=== PATIENT | male | born 1955 ===

== ENCOUNTER 2017-03-28 10:22 | Inpatient (IN) | payer OTHER ==
[2017-03-28 12:02] LABS: BASO % 0.6 % (0.0-2.0); EOS # 0.1 K/uL (0.0-0.7); EOS % 1.7 % (0.0-4.0); HEMOGLOBIN 11.4 g/dL (12.0-18.0); LYMPH # 0.6 K/uL (1.0-4.3); LYMPH % 11.1 % (20.0-40.0); MEAN CELL VOLUME 95.6 fl (80.0-94.0); MEAN CORPUSCULAR HEMOGLOBIN 32.7 pg (27.0-31.0); MEAN CORPUSCULAR HGB CONC 34.2 g/dL (33.0-37.0); MEAN PLATELET VOLUME 6.9 fl (7.2-11.7); MONO # 0.8 K/uL (0.0-0.8); MONO % 13.5 % (0.0-10.0); NEUT # 4.1 K/uL (1.8-7.0); NEUT % 73.1 % (50.0-75.0); RBC 3.5 Mil/uL (4.40-5.90); RED CELL DISTRIBUTION WIDTH 14.2 % (11.5-14.5); WHITE BLOOD COUNT 5.6 K/uL (4.8-10.8)
[2017-03-28 12:09] LABS: URINE BACTERIA RARE (<OCC); URINE BILIRUBIN NEGATIVE (NEGATIVE); URINE BLOOD NEGATIVE (NEGATIVE); URINE CLARITY CLEAR (Clear); URINE COLOR STRAW (YELLOW); URINE GLUCOSE (UA) 50 mg/dL (Normal); URINE LEUKOCYTE ESTERASE NEG Leu/uL (Negative); URINE NITRATE NEGATIVE (NEGATIVE); URINE PROTEIN NEGATIVE (NEGATIVE); URINE UROBILINOGEN 0.2-1.0 mg/dL (0.2-1.0)
--- NOTE | 2017-03-28 12:43 | ED PDOC ---
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 states for the past 3 months he's been having worsening hiccups especially over the last 3-4 days. Reports that he was initially seen in [place] [facility] and was subsequently admitted for 5 nights. Pt. states he was mainly treated for his pneumonia at that time but he was given a GI consult. After he was discharged he was evaluated by Dr. Sukhwinder Bryant who scheduled an upper endoscopy to be done on 04/22/2017. States that he was not given any medications to help relieve symptoms. Pt. states since the hiccups have worsened he's also developed b/l chest pain and epigastric pain present only when he hiccups. Denies fever, N/V/D, melena, hematochezia, BRBPR, SOB, palpitations, hematemesis. Also reports having 20lb weight loss. Past Medical History Reviewed: Historical Data, Nursing Documentation, Vital Signs Vital Signs: Last Vital Signs Temp 97.6 F 03/28/17 17:00 Pulse 109 H 03/28/17 18:02 Resp 20 03/28/17 17:38 BP 150/90 03/28/17 17:38 Pulse Ox 100 03/28/17 18:02 - Medical History PMH: Diabetes - Family History Family History: States: No Known Family Hx - Social History Current smoker - smoking cessation education provided: No Ex-Smoker (has not smoked in the last 12 months): Yes (stopped smoking 3 years ago; smoker x 10 years 3-4 cigarettes/day) - Home Medications Home Medications: Ambulatory Orders Medication Instructions Recorded Cyclobenzaprine [Flexeril] 5 mg PO BID PRN 03/28/17 Ferrous Sulfate [Ferosul] 325 mg PO BID 03/28/17 Insulin Detemir [Levemir] 20 unit SC HS 03/28/17 MetFORMIN [glucoPHAGE] 1,000 mg PO BID 03/28/17 Multivitamin [Multi-Vitamin Daily] 1 tab PO DAILY 03/28/17 Vitamin B Complex [Super B-50 1 cap PO DAILY 03/28/17 Complex] - Allergies Allergies/Adverse Reactions: Allergies Allergy/AdvReac Type Severity Reaction Status Date / Time No Known Allergies Allergy Verified 03/28/17 10:48 Review of Systems ROS Statement: Except As Marked, All Systems Reviewed And Found Negative Constitutional: Positive for: Weight loss (20 lbs over the last 3 months) Cardiovascular: Positive for: Chest Pain Gastrointestinal: Positive for: Vomiting, Abdominal Pain. Negative for: Hematemesis Physical Exam - Reviewed Nursing Documentation Reviewed: Yes Vital Signs Reviewed: Yes - Physical Exam Appears: Positive for: Well, Non-toxic, Uncomfortable (actively hiccuping) Head Exam: Positive for: ATRAUMATIC, NORMAL INSPECTION, NORMOCEPHALIC Skin: Positive for: Normal Color, Warm, DRY Eye Exam: Positive for: EOMI, Normal appearance, PERRL ENT: Positive for: Normal ENT Inspection. Negative for: Pharyngeal Erythema, Tonsillar Exudate, Tonsillar Swelling Neck: Positive for: Normal, Painless ROM Cardiovascular/Chest: Positive for: Regular Rate, Rhythm Respiratory: Positive for: CNT, Normal Breath Sounds Gastrointestinal/Abdominal: Positive for: Normal Exam, Bowel Sounds, Soft. Negative for: Tenderness Back: Positive for: Normal Inspection. Negative for: L CVA Tenderness, R CVA Tenderness Extremity: Positive for: Normal ROM Neurologic/Psych: Positive for: Alert, Oriented - Laboratory Results Result Diagrams: 03/28/17 11:50 03/28/17 12:20 - ECG ECG: Positive for: Interpreted By Me ECG Rhythm: Positive for: Sinus Tachycardia. Negative for: ST/T Changes Rate: 109 O2 Sat by Pulse Oximetry: 100 - Radiology X-Ray: Interpreted by Me (CXR) X-Ray Interpretation: No Acute Disease - Progress ED Course And Treament: Labs ordered. CXR ordered. Case d/w Dr. Bryant who states pt. can be given Thorazine and a PPI and he can f/u with his office if symptoms worsen. Thorazine 25mg IM, protonix 40mg IV given. On re-evaluation, pt. reports complete relief of hiccups. IV NS hydration at 100mls/hr, kayexalate PO given. Pt. placed on monitor and is tachycardic at 120 bpm. D-dimer elevated. CTA ordered. CTA chest w/ IV contrast: Multifocal infiltrates primarily affecting the right lung including several of which are cavitary. This includes complex partially cavitary mass in the anterior segment of the right upper lobe, thick walled cavitary mass in the superior segment of the right lower lobe. Associated inflammatory/ infiltrative changes identified in the right lower lobe. Additional benign cavitary masses in the right middle lobe. Focal pleural thickening and subpulmonic effusion on the right identified. The overall appearance suggests chronic process. Differential diagnostic considered variations include necrotic masses, septic emboli, fungal infectious/ inflammatory etiologies in an immunocompromised individual. There is a component of volume loss in underlying hyperinflation, manifestations of COPD. Blood culture x 2, Levaquin 500mg IV ordered. Case d/w Dr. Almonte and arrangements made for admission. Disposition - Clinical Impression Clinical Impression: Hyponatremia, Hyperkalemia, Mass of lung - Patient ED Disposition Is Patient to be Admitted: Yes - Disposition Disposition Time: 17:00 Condition: STABLE
--- NOTE | 2017-03-28 12:44 | RAD ---
HISTORY: Abdominal pain. COMPARISON: No prior. TECHNIQUE: Chest PA and lateral FINDINGS: LUNGS: Multifocal infiltrates primarily affecting right lower lobe. PLEURA: Small right pleural effusion. CARDIOVASCULAR: No radiographic findings to suggest acute or significant cardiovascular disease. OSSEOUS STRUCTURES: No significant abnormalities. VISUALIZED UPPER ABDOMEN: Normal. OTHER FINDINGS: None. IMPRESSION: Multifocal infiltrates primarily affecting the right lower lobe. Small right pleural effusion.
[2017-03-28 12:46] LABS: ALB/GLOB RATIO 0.5 (1.0-2.1); ALBUMIN 3.1 g/dL (3.5-5.0); ALT/SGPT 68 U/L (21-72); AST/SGOT 83 U/L (17-59); BLOOD UREA NITROGEN 12 mg/dl (9-20); CALCIUM 8.5 mg/dL (8.4-10.2); GFR AFRICAN-AMERICAN > 60; GFR NON-AFRICAN AMERICAN > 60; LIPASE 31 U/L (23-300)
[2017-03-28] MEDS ORDERED: Sodium Chloride 0.9% 1,000 ML IV STA (13:03)
[2017-03-28] MEDS ORDERED: Sod Polystyrene Sulf 15 gm/60 ml Oral Susp PO STA (13:03)
[2017-03-28] MEDS ORDERED: Sod Polystyrene Sulf 15 gm/60 ml Oral Susp ONE (13:12)
[2017-03-28] MEDS ORDERED: Sodium Chloride 0.9% 50 ML IV ONE (15:50)
[2017-03-28] MEDS ORDERED: Iodixanol 320 MG/ML 100 ML BOTTLE IV ONE (15:50)
--- NOTE | 2017-03-28 17:13 | CT ---
PROCEDURE: CT Chest with contrast (Pulmonary Angiogram) HISTORY: chest pain, elevated ddimer, chest pain COMPARISON: None available. TECHNIQUE: Axial computed tomography images were obtained of the chest in the pulmonary arterial phase of enhancement. Coronal and sagittal reformatted images were created and reviewed. Maximum intensity projection (MIP) reconstructed images in the following planes: Axial only Intravenous contrast dose: 80 cc Visipaque 320 Mean Hounsfield unit values in the main pulmonary artery: 333.8 Radiation dose: Total exam DLP = 197.78 mGy-cm. This CT exam was performed using one or more of the following dose reduction techniques: Automated exposure control, adjustment of the mA and/or kV according to patient size, and/or use of iterative reconstruction technique. FINDINGS: PULMONARY ARTERIES: Unremarkable. No pulmonary embolism. AORTA: No acute findings. No thoracic aortic aneurysm. LUNGS: Multifocal infiltrates primarily affecting the right lung including several of which are cavitary. This includes complex partially cavitary mass in the anterior segment of the right upper lobe, thick walled cavitary mass in the superior segment of the right lower lobe. Associated inflammatory/ infiltrative changes identified in the right lower lobe. Additional benign cavitary masses in the right middle lobe. Focal pleural thickening and subpulmonic effusion on the right identified. The overall appearance suggests chronic process. Differential diagnostic considered variations include necrotic masses, septic emboli, fungal infectious/ inflammatory etiologies in an immunocompromised individual. There is a component of volume loss in underlying hyperinflation, manifestations of COPD. PLEURAL SPACES: Unremarkable. No effusion or pneuomothorax. HEART: Unremarkable. No cardiomegaly. No significant pericardial effusion. LYMPH NODES: No lymphadenopathy. BONES, CHEST WALL: Unremarkable. No fracture or destructive lesion OTHER FINDINGS: Unremarkable. IMPRESSION: Unremarkable CT pulmonary angiogram. No pulmonary embolus. Multifocal pulmonary parenchymal findings primarily affecting right lung including all 3 lobes. Differential considerations provided in the commentary. Unilateral, right and partially loculated pleural effusion.
[2017-03-28] MEDS ORDERED: levoFLOXacin 500 mg in D5W 500 MG/100 ML BAG IVPB ONE (18:32)
--- NOTE | 2017-03-28 19:38 | CP.PCM.HP ---
History of Present Illness - History of Present Illness History of Present Illness: 61 yo male with history of DM2 came in complaining of recurrent and persistent hiccups for 3 months partially relieved with induced vomiting. He claimed that he loss about 25 lbs since then. He admitted that the hiccups just suddenly appeared out of nowhere without any cause. He was seen at [facility] and was admitted for pneumonia. After 5 days, patient was discharged but according to him, his hiccups never went away. He was told to follow up with his PCP at the [facility] where CT scan and other blood tests were done. He was also referred to Dr Sukhwinder Bryant, who scheduled him for endoscopy on . Patient denied fever, chills, SOB or coughing. He admitted having chest pain with the hiccups. Present on Admission - Present on Admission Any Indicators Present on Admission: No History of DVT/PE: No History of Uncontrolled Diabetes: No Urinary Catheter: No Decubitus Ulcer Present: No Review of Systems - Review of Systems All systems: reviewed and no additional remarkable complaints except (aside from those mentioned above, 12 point system review were negative by me) Past Patient History - Tetanus Immunizations Tetanus Immunization: Unknown - Past Medical History & Family History Past Medical History?: No Past Family History: Reviewed and not pertinent - Past Social History Smoking Status: Never Smoked Alcohol: None Drugs: Denies Home Situation {Lives}: With Family - CARDIAC Hx Cardiac Disorders: No - PULMONARY Hx Respiratory Disorders: No - NEUROLOGICAL Hx Neurological Disorder: No - HEENT Hx HEENT Problems: No - RENAL Hx Chronic Kidney Disease: No - ENDOCRINE/METABOLIC Hx Diabetes Mellitus Type 2: Yes - HEMATOLOGICAL/ONCOLOGICAL Hx Blood Disorders: No - INTEGUMENTARY Hx Dermatological Problems: No - MUSCULOSKELETAL/RHEUMATOLOGICAL Hx Musculoskeletal Disorders: No - GASTROINTESTINAL Hx Gastrointestinal Disorders: No - GENITOURINARY/GYNECOLOGICAL Hx Genitourinary Disorders: No - PSYCHIATRIC Hx Psychophysiologic Disorder: No Hx Substance Use: No - SURGICAL HISTORY Hx Surgeries: Yes Other/Comment: ABDOMINAL SURGERY FROM ULCER. - ANESTHESIA Hx Anesthesia: Yes Hx Anesthesia Reactions: No Meds Allergies/Adverse Reactions: Allergies Allergy/AdvReac Type Severity Reaction Status Date / Time No Known Allergies Allergy Verified 03/28/17 10:48 Physical Exam - Constitutional Appears: No Acute Distress, Cachectic - Head Exam Head Exam: ATRAUMATIC - Eye Exam Eye Exam: absent: Scleral icterus - ENT Exam ENT Exam: Mucous Membranes Moist - Neck Exam Neck exam: Negative for: Meningismus - Respiratory Exam Respiratory Exam: absent: Rhonchi, Wheezes, Respiratory Distress - Cardiovascular Exam Cardiovascular Exam: REGULAR RHYTHM, +S1, +S2 - GI/Abdominal Exam GI & Abdominal Exam: Soft. absent: Tenderness - Rectal Exam Rectal Exam: Deferred - Extremities Exam Extremities exam: Negative for: calf tenderness, pedal edema - Back Exam Back exam: NORMAL INSPECTION - Neurological Exam Neurological exam: Alert, Oriented x3 - Psychiatric Exam Psychiatric exam: Normal Affect - Skin Skin Exam: Dry, Intact Results - Vital Signs Recent Vital Signs: Last Vital Signs Temp 97.6 F 03/28/17 17:00 Pulse 109 H 03/28/17 19:25 Resp 20 03/28/17 17:38 BP 150/90 03/28/17 17:38 Pulse Ox 100 03/28/17 19:25 - Labs Result Diagrams: 03/28/17 11:50 03/28/17 12:20 Assessment & Plan (1) Mass of lung Status: Acute Comment: admit to med/surg. Multifocal infiltrate on RUL, RLL and RML with cavitations. Blood cultures x 2. Sputum culture. Zosyn 375gm IV q 6hrs. Levaquin 500mg IV daily. Pulmonary consult with Dr Brand (2) Intractable hiccups Status: Acute Comment: GI consult with Dr Bryant. Protonix 40mg PO daily. Chlorpromazine 25 PO TID prn (3) DM2 (diabetes mellitus, type 2) Status: Acute Comment: diabetic diet. accuchek ACHS with low Lispro coverage. Metformin 1000mg PO BID. Levemir 20 units SC HS. HgA1C, BMP in am (4) Hyponatremia Status: Acute Comment: IV hydration with NSS 150cc/hr. repeat BMP in am (5) Hyperkalemia Status: Acute Comment: received Kayexalate 30gm PO in ER. repeat BMP in am (6) DVT prophylaxis Status: Acute Comment: Lovenox 40mg SC daily
[2017-03-28] MEDS ORDERED: Sodium Chloride 3% for Inhalation 4 ML VIAL.NEB IH PRN (20:13)
[2017-03-28] MEDS ORDERED: Tuberculin 5 Units/0.1 ml Inj ID ONE (20:27)
[2017-03-28] MEDS ORDERED: Piperacillin/Tazobact 3.375 GM in Sodium Chloride 0.9% 100 ML IVPB SCH (22:00)
[2017-03-28] MEDS: Sodium Chloride 0.9% 1,000 ML IV SCH (23:05)
[2017-03-28] MEDS: Insulin Detemir 100 Units/ml Inj SC SCH (23:47)
[2017-03-29] MEDS: Piperacillin/Tazobact 3.375 GM in Sodium Chloride 0.9% 100 ML IVPB SCH ×5 (00:08→23:18)
[2017-03-29] MEDS: Sodium Chloride 0.9% 1,000 ML IV SCH ×2 (02:55→23:45)
[2017-03-29] MEDS: Insulin Regular 100 units/ml SC SCH ×4 (06:35→21:44)
[2017-03-29 06:41] LABS: BASO % 0.2 % (0.0-2.0); EOS # 0.1 K/uL (0.0-0.7); EOS % 1.8 % (0.0-4.0); HEMOGLOBIN 11.2 g/dL (12.0-18.0); LYMPH # 0.5 K/uL (1.0-4.3); LYMPH % 10.3 % (20.0-40.0); MEAN CELL VOLUME 94.6 fl (80.0-94.0); MEAN CORPUSCULAR HEMOGLOBIN 32.9 pg (27.0-31.0); MEAN CORPUSCULAR HGB CONC 34.8 g/dL (33.0-37.0); MONO # 0.5 K/uL (0.0-0.8); MONO % 9.8 % (0.0-10.0); NEUT # 3.7 K/uL (1.8-7.0); NEUT % 77.9 % (50.0-75.0); NRBC % 0.2 % (0.0-0.0); RBC 3.39 Mil/uL (4.40-5.90); RED CELL DISTRIBUTION WIDTH 14.6 % (11.5-14.5); WHITE BLOOD COUNT 4.8 K/uL (4.8-10.8)
[2017-03-29 06:59] LABS: BLOOD UREA NITROGEN 10 mg/dl (9-20); CALCIUM 7.8 mg/dL (8.4-10.2); GFR AFRICAN-AMERICAN > 60; GFR NON-AFRICAN AMERICAN > 60
[2017-03-29] MEDS: Enoxaparin 40 mg Syringe SC SCH (09:18)
[2017-03-29] MEDS: Pantoprazole 40 mg EC Tab PO SCH (09:19)
[2017-03-29] MEDS: levoFLOXacin 500 mg in D5W 500 MG/100 ML BAG IVPB SCH (10:00)
[2017-03-29 11:44] VITALS: BMI 17.5
--- NOTE | 2017-03-29 11:47 | CP.PCM.PN ---
<Jonah Alcazar - Last Filed: 03/29/17 13:04> Subjective - Date & Time of Evaluation Date of Evaluation: 03/29/17 Time of Evaluation: 11:44 - Subjective Subjective: - Patient seen resting in bed comfortably. Denies any overnight events. His hiccups have resolved. Patient has ate breakfast and is tolerating PO intake. Denies any chills, fever, cough, nausea or vomiting. Objective - Vital Signs/Intake and Output Vital Signs (last 24 hours): Temp Pulse Resp BP Pulse Ox 98.9 F 105 H 20 151/87 H 99 03/29/17 10:00 03/29/17 10:00 03/29/17 10:00 03/29/17 10:00 03/29/17 07:32 - Medications Medications: Current Medications Enoxaparin Sodium (Lovenox) 40 mg SC DAILY [facility] PRN Reason: Protocol Last Admin: 03/29/17 09:18 Dose: 40 mg Ferrous Sulfate (Feosol) 325 mg PO BID [facility] Last Admin: 03/29/17 09:19 Dose: 325 mg Sodium Chloride (Sodium Chloride 0.9%) 1,000 mls @ 150 mls/hr IV .Q6H40M [facility] Last Admin: 03/29/17 02:55 Dose: Not Given Levofloxacin/Dextrose (Levaquin 500mg) 500 mg in 100 mls @ 100 mls/hr IVPB DAILY [facility] Last Admin: 03/29/17 10:00 Dose: 100 mls/hr Piperacillin Sod/Tazobactam (Sod 3.375 gm/ Sodium Chloride) 100 mls @ 100 mls/ hr IVPB 0000,0600,1200,1800 [facility] Last Admin: 03/29/17 05:26 Dose: 100 mls/hr Insulin Detemir (Levemir) 20 units SC HS [facility] Last Admin: 03/28/17 23:47 Dose: Not Given Insulin Human Regular (Humulin R) 0 units SC ACHS [facility] PRN Reason: Protocol Last Admin: 03/29/17 06:35 Dose: Not Given Metformin HCl (Glucophage) 1,000 mg PO BID [facility] Last Admin: 03/29/17 09:18 Dose: 1,000 mg Pantoprazole Sodium (Protonix Ec Tab) 40 mg PO DAILY [facility] Last Admin: 03/29/17 09:19 Dose: 40 mg - Labs Labs: 03/29/17 05:20 03/29/17 05:20 - Constitutional Appears: No Acute Distress - Head Exam Head Exam: NORMAL INSPECTION, NORMOCEPHALIC - Eye Exam Eye Exam: EOMI, Normal appearance Pupil Exam: NORMAL ACCOMODATION - Respiratory Exam Respiratory Exam: Clear to Ausculation Bilateral. absent: Rhonchi, Wheezes - Cardiovascular Exam Cardiovascular Exam: REGULAR RHYTHM, Murmur Additional comments: 3+ - GI/Abdominal Exam GI & Abdominal Exam: Soft, Normal Bowel Sounds. absent: Tenderness - Extremities Exam Extremities Exam: Normal Inspection. absent: Calf Tenderness - Neurological Exam Neurological Exam: Alert, Awake, CN II-XII Intact, Oriented x3 - Psychiatric Exam Psychiatric exam: Normal Affect, Normal Mood - Skin Skin Exam: Normal Color, Warm Assessment and Plan - Assessment and Plan (Free Text) Assessment: (1) Mass of lung Status: Acute Comment: - In isolation untill sputum culture results come back - Multifocal infiltrate on RUL, RLL and RML with cavitations. Zosyn 375gm IV q 6hrs. Levaquin 500mg IV daily. - F/ U w/ blood culture x2 - F/U w/ sputum culture - F/U w/ AFP culture sputum - Pulmonary consult with Dr Brand (2) Intractable hiccups ( Resolved) Status: Acute Comment: GI consult with Dr Bryant. Protonix 40mg PO daily. (3) DM2 (diabetes mellitus, type 2) Status: Acute Comment: diabetic diet. accuchek ACHS with low Lispro coverage. Metformin 1000mg PO BID. Levemir 20 units SC HS. - F/U w/ HBA1C (4) Hyponatremia ( improving) Status: Acute Comment: IV hydration with NSS 150cc/hr. - improved from 126 to 130 - F/U w/ BMP tomorrow (5) Hyperkalemia ( Resolved) Status: Acute Comment: received Kayhexalate 30gm PO in ER. On repeat BMP: K+ was 4.6 (6) DVT prophylaxis Status: Acute Comment: Lovenox 40mg SC daily <Oscar Almonte D - Last Filed: 03/29/17 13:59> Objective - Vital Signs/Intake and Output Vital Signs (last 24 hours): Temp Pulse Resp BP Pulse Ox 98.9 F 105 H 20 151/87 H 99 06/30/17 10:00 03/29/17 10:00 03/29/17 10:00 03/29/17 10:00 03/29/17 07:32 - Medications Medications: Current Medications Enoxaparin Sodium (Lovenox) 40 mg SC DAILY [facility] PRN Reason: Protocol Last Admin: 03/29/17 09:18 Dose: 40 mg Ferrous Sulfate (Feosol) 325 mg PO BID [facility] Last Admin: 03/29/17 09:19 Dose: 325 mg Sodium Chloride (Sodium Chloride 0.9%) 1,000 mls @ 150 mls/hr IV .Q6H40M [facility] Last Admin: 03/29/17 02:55 Dose: Not Given Levofloxacin/Dextrose (Levaquin 500mg) 500 mg in 100 mls @ 100 mls/hr IVPB DAILY [facility] Last Admin: 03/29/17 10:00 Dose: 100 mls/hr Piperacillin Sod/Tazobactam (Sod 3.375 gm/ Sodium Chloride) 100 mls @ 100 mls/ hr IVPB 0000,0600,1200,1800 [facility] Last Admin: 03/29/17 05:26 Dose: 100 mls/hr Insulin Detemir (Levemir) 20 units SC HS [facility] Last Admin: 03/28/17 23:47 Dose: Not Given Insulin Human Regular (Humulin R) 0 units SC ACHS [facility] PRN Reason: Protocol Last Admin: 03/29/17 12:55 Dose: 2 units Metformin HCl (Glucophage) 1,000 mg PO BID [facility] Last Admin: 03/29/17 09:18 Dose: 1,000 mg Pantoprazole Sodium (Protonix Ec Tab) 40 mg PO DAILY [facility] Last Admin: 03/29/17 09:19 Dose: 40 mg - Labs Labs: 03/29/17 05:20 03/29/17 05:20 Assessment and Plan (1) Mass of lung Status: Acute (2) Intractable hiccups Status: Acute (3) DM2 (diabetes mellitus, type 2) Status: Acute (4) Hyponatremia Status: Acute (5) Hyperkalemia Status: Acute (6) DVT prophylaxis Status: Acute - Assessment and Plan (Free Text) Assessment: Patient seen with resident and agreed with assessment and plan. Spoke with Dr Brand and recommended bronchoscopy. He will also follow up previous studies done at [facility].
--- NOTE | 2017-03-29 13:53 | CP.PCM.CON ---
History of Present Illness - History of Present Illness History of Present Illness: 61 yo male with thick walled cavitary lesions in chest- hx of weight loss w/o fever R/O malignancy TB less likely will send sputum afb 61 yo male with history of DM2 came in complaining of recurrent and persistent hiccups for 3 months partially relieved with induced vomiting. He claimed that he loss about 25 lbs since then. He admitted that the hiccups just suddenly appeared out of nowhere without any cause. He was seen at [facility] and was admitted for pneumonia. After 5 days, patient was discharged but according to him, his hiccups never went away. He was told to follow up with his PCP at the [facility] where CT scan and other blood tests were done. He was also referred to Dr Sukhwinder Bryant, who scheduled him for endoscopy on . Patient denied fever, chills, SOB or coughing. He admitted having chest pain with the hiccups. Review of Systems - Constitutional Constitutional: As Per HPI, Anorexia - EENT Eyes: absent: As Per HPI, Blind Spots, Blurred Vision, Change in Vision, Decreased Night Vision, Diplopia, Discharge, Dry Eye, Exophthalmos, Floaters, Irritation, Itchy Eyes, Loss of Peripheral Vision, Pain, Photophobia, Requires Corrective Lenses, Sees Flashes, Spots in Vision, Tunnel Vision, Other Visual Disturbances, Loss of Vision, Other Ears: absent: As Per HPI, Decreased Hearing, Ear Discharge, Ear Pain, Tinnitus, Abnormal Hearing, Disequilibrium, Dizziness, Other Nose/Mouth/Throat: absent: As Per HPI, Epistaxis, Nasal Congestion, Nasal Discharge, Nasal Obstruction, Nasal Trauma, Nose Pain, Post Nasal Drip, Sinus Pain, Sinus Pressure, Bleeding Gums, Change in Voice, Dental Pain, Dry Mouth, Dysphagia, Halitosis, Hoarsness, Lip Swelling, Mouth Lesions, Mouth Pain, Odynophagia, Sore Throat, Throat Swelling, Tongue Swelling, Facial Pain, Neck Pain, Neck Mass, Other - Cardiovascular Cardiovascular: absent: As Per HPI, Acrocyanosis, Chest Pain, Chest Pain at Rest , Chest Pain with Activity, Claudication, Diaphoresis, Dyspnea, Dyspnea on Exertion, Edema, Irregular Heart Rhythm, Pain Radiating to Arm/Neck/Jaw, Leg Edema, Leg Ulcers, Lightheadedness, Orthopnea, Palpitations, Paroxysmal Nocturnal Dyspnea, Pedal Edema, Radiating Pain, Rapid Heart Rate, Slow Heart Rate, Syncope, Other - Respiratory Respiratory: As Per HPI - Gastrointestinal Gastrointestinal: As Per HPI - Genitourinary Genitourinary: absent: As Per HPI, Change in Urinary Stream, Difficulty Urinating, Dysuria, Flank Pain, Hematuria, Pyuria, Nocturia, Urinary Incontinence, Urinary Frequency, Urinary Hesitance, Urinary Urgency, Voiding Freq/Small Amts, Freq UTI, Hx Renal/Bladder Calculi, Hx /Renal Surgery, Bladder Distension, Other - Musculoskeletal Musculoskeletal: absent: As Per HPI, Abnormal Gait, Arthralgias, Atrophy, Back Pain, Deformity, Joint Swelling, Limited Range of Motion, Loss of Height, Muscle Cramps, Muscle Weakness, Myalgias, Neck Pain, Numbness, Radiating Pain into Limb, Stiffness, Tingling, Other - Integumentary Integumentary: absent: As Per HPI, Acne, Alopecia, Bleeding Lesions, Change in Hair, Change in Nails, Change in Pigmentation, Changing Lesions, Dry Skin, Erythema, Furuncle, Hirsutism, Lesions, New Lesions, Non-Healing Lesions, Photosensitivity, Pruritus, Rash, Skin Pain, Skin Ulcer, Sores, Striae, Swelling , Unusual Bruising, Wounds, Jaundice, Other - Neurological Neurological: absent: As Per HPI, Abnormal Gait, Abnormal Hearing, Abnormal Movements, Abnormal Speech, Behavioral Changes, Burning Sensations, Confusion, Convulsions, Disequilibrium, Dizziness, Numbness, Focal Weakness, Frequent Falls , Headaches, Lack of Coordination, Loss of Vision, Memory Loss, Paresthesias, Radicular Pain, Restless Legs, Sensory Deficit, Syncope, Tingling, Tremor, Vertigo, Weakness, Other Visual Disturbances, Other - Psychiatric Psychiatric: absent: As Per HPI, Abnormal Sleep Pattern, Anhedonia, Anxiety, Auditory Hallucinations, Behavioral Changes, Change in Appetite, Change in Libido, Confusion, Depression, Difficulty Concentrating, Hallucinations, Homicidal Ideation, Hopelessness, Irritability, Memory Loss, Mood Swings, Panic Attacks, Paranoia, Suicidal Ideation, Visual Hallucinations, Tactile Hallucinations, Other - Endocrine Endocrine: absent: As Per HPI, Change in Body Appearance, Change in Libido, Cold Intolorance, Deepening of Voice, Excessive Sweating, Fatigue, Flushing, Heat Intolorance, Increase in Ring/Shoe/Hat Size, Palpitations, Polydipsia, Polyphagia, Polyuria, Other - Hematologic/Lymphatic Hematologic: absent: As Per HPI, Easy Bleeding, Easy Bruising, Lymphadenopathy, Other Past Patient History - Tetanus Immunizations Tetanus Immunization: Unknown - Past Medical History & Family History Past Medical History?: No - Past Social History Smoking Status: Former Smoker - CARDIAC Hx Cardiac Disorders: No - PULMONARY Hx Respiratory Disorders: No - NEUROLOGICAL Hx Neurological Disorder: No - HEENT Hx HEENT Problems: No - RENAL Hx Chronic Kidney Disease: No - ENDOCRINE/METABOLIC Hx Endocrine Disorders: Yes Hx Diabetes Mellitus Type 2: Yes - HEMATOLOGICAL/ONCOLOGICAL Hx Blood Disorders: No - INTEGUMENTARY Hx Dermatological Problems: No - MUSCULOSKELETAL/RHEUMATOLOGICAL Hx Musculoskeletal Disorders: No Hx Falls: No - GASTROINTESTINAL Hx Gastrointestinal Disorders: No - GENITOURINARY/GYNECOLOGICAL Hx Genitourinary Disorders: No - PSYCHIATRIC Hx Psychophysiologic Disorder: No Hx Substance Use: No - SURGICAL HISTORY Hx Surgeries: Yes Other/Comment: ABDOMINAL SURGERY FROM ULCER. - ANESTHESIA Hx Anesthesia: Yes Hx Anesthesia Reactions: No Meds Allergies/Adverse Reactions: Allergies Allergy/AdvReac Type Severity Reaction Status Date / Time No Known Allergies Allergy Verified 03/28/17 10:48 - Medications Medications: Current Medications Enoxaparin Sodium (Lovenox) 40 mg SC DAILY [facility] PRN Reason: Protocol Last Admin: 03/29/17 09:18 Dose: 40 mg Ferrous Sulfate (Feosol) 325 mg PO BID [facility] Last Admin: 03/29/17 09:19 Dose: 325 mg Sodium Chloride (Sodium Chloride 0.9%) 1,000 mls @ 150 mls/hr IV .Q6H40M [facility] Last Admin: 03/29/17 02:55 Dose: Not Given Levofloxacin/Dextrose (Levaquin 500mg) 500 mg in 100 mls @ 100 mls/hr IVPB DAILY [facility] Last Admin: 03/29/17 10:00 Dose: 100 mls/hr Piperacillin Sod/Tazobactam (Sod 3.375 gm/ Sodium Chloride) 100 mls @ 100 mls/ hr IVPB 0000,0600,1200,1800 [facility] Last Admin: 03/29/17 05:26 Dose: 100 mls/hr Insulin Detemir (Levemir) 20 units SC [facility] Last Admin: 03/28/17 23:47 Dose: Not Given Insulin Human Regular (Humulin R) 0 units SC ACHS [facility] PRN Reason: Protocol Last Admin: 03/29/17 12:55 Dose: 2 units Metformin HCl (Glucophage) 1,000 mg PO BID [facility] Last Admin: 03/29/17 09:18 Dose: 1,000 mg Pantoprazole Sodium (Protonix Ec Tab) 40 mg PO DAILY [facility] Last Admin: 03/29/17 09:19 Dose: 40 mg Physical Exam - Constitutional Appears: Non-toxic, Chronically Ill - Head Exam Head Exam: ATRAUMATIC - Eye Exam Eye Exam: absent: Scleral icterus Pupil Exam: PERRL - ENT Exam ENT Exam: Mucous Membranes Dry, Normal External Ear Exam - Neck Exam Neck exam: Negative for: Lymphadenopathy - Respiratory Exam Respiratory Exam: Decreased Breath Sounds, Rhonchi - Cardiovascular Exam Cardiovascular Exam: REGULAR RHYTHM, +S1, +S2 - GI/Abdominal Exam GI & Abdominal Exam: Diminished Bowel Sounds, Soft. absent: Tenderness - Rectal Exam Rectal Exam: Deferred - Exam Exam: NORMAL INSPECTION - Extremities Exam Extremities exam: Negative for: pedal edema - Back Exam Back exam: absent: CVA tenderness (L), CVA tenderness (R) - Neurological Exam Neurological exam: Alert, CN II-XII Intact, Oriented x3 - Psychiatric Exam Psychiatric exam: Normal Mood - Skin Skin Exam: Dry Results - Vital Signs Recent Vital Signs: Last Vital Signs Temp 98.9 F 03/29/17 10:00 Pulse 105 H 03/29/17 10:00 Resp 20 03/29/17 10:00 BP 151/87 H 03/29/17 10:00 Pulse Ox 99 03/29/17 07:32 - Labs Result Diagrams: 03/29/17 05:20 03/29/17 05:20 Labs: Laboratory Results - last 24 hr 03/28/17 03/29/17 03/29/17 23:44 05:20 05:20 WBC 4.8 RBC 3.39 L Hgb 11.2 L Hct 32.1 L MCV 94.6 H MCH 32.9 H MCHC 34.8 RDW 14.6 H Plt Count 170 MPV 7.0 L Neut % (Auto) 77.9 H Lymph % (Auto) 10.3 L [place] % (Auto) 9.8 Eos % (Auto) 1.8 Baso % (Auto) 0.2 Neut # 3.7 Lymph # 0.5 L [place] # 0.5 Eos # 0.1 Baso # 0.0 Sodium 130 L Potassium 4.6 Chloride 101 Carbon Dioxide 24 Anion Gap 10 BUN 10 Creatinine 0.9 Est GFR ( Amer) > 60 Est GFR (Non-Af Amer) > 60 POC Glucose (mg/dL) 139 H Random Glucose 95 Hemoglobin A1c Calcium 7.8 L TSH 3rd Generation 0.74 03/29/17 03/29/17 03/29/17 05:20 05:34 10:24 WBC RBC Hgb Hct MCV MCH MCHC RDW Plt Count MPV Neut % (Auto) Lymph % (Auto) [place] % (Auto) Eos % (Auto) Baso % (Auto) Neut # Lymph # [place] # Eos # Baso # Sodium Potassium Chloride Carbon Dioxide Anion Gap BUN Creatinine Est GFR ( Amer) Est GFR (Non-Af Amer) POC Glucose (mg/dL) 91 239 H Random Glucose Hemoglobin A1c 7.9 H Calcium TSH 3rd Generation Assessment & Plan (1) DM2 (diabetes mellitus, type 2) Status: Acute (2) Intractable hiccups Status: Acute (3) Mass of lung Status: Acute
--- NOTE | 2017-03-29 15:25 | CP.PCM.CON ---
History of Present Illness - History of Present Illness History of Present Illness: Pulmonary consult. This is a 61 y/o M, [facility]x of intractable Hiccups for 3 months worsening for the last 3 weeks [employer], symptom partially relief with induce vomiting. Worsening symptom: RUQ abdominal pain 2nd to persistent hiccups, Night sweats, denied fever, chills. Aggravated factor: CT Chest showing Cavitary lung lesions, weight loss. Pt mentioned, he came from [facility] in 2001, on August 2016 he flew [place] and returned asymptomatic, there after, last november 2016, he was admitted to [facility] for Hiccups associated to fever, was found to have PNA and after stable was discharged home but he states that after released from hospital has been continue with persistent symptoms of hiccups and also has been lost about 25 Lbs. Pt denied: Fever, chills, cough, hemoptysis, SOB, TB contact, back pain, n/v/d , abdominal pain, urinary symptoms, CP, palpitations. PMHx: Intractable Hiccups, PNA, DMII and Hx of Gastric ulcer. CT Chest shows: Multifocal infiltrates primarily affecting the RLL. Cavity mass in the anterior segment of the RUL. Thick walled cavity mass superior segment RLL. Benign cavity masses RML. Review of Systems - Constitutional Constitutional: Weight Loss, Other (Night sweating) - EENT Eyes: Other (negative) Ears: Other (negative) Nose/Mouth/Throat: Other (negative) - Cardiovascular Cardiovascular: Other (negative) - Respiratory Respiratory: Other (Hiccups) - Gastrointestinal Gastrointestinal: Other (RUQ abdominal pain with hiccups.) - Genitourinary Genitourinary: Other (negative) - Musculoskeletal Musculoskeletal: Other (negative) - Integumentary Integumentary: Other (negative) - Neurological Neurological: Other (negative) - Psychiatric Psychiatric: Other (negative) - Endocrine Endocrine: Other (negative) - Hematologic/Lymphatic Hematologic: Other (negative) Past Patient History - Tetanus Immunizations Tetanus Immunization: Unknown - Past Medical History & Family History Past Medical History?: No Pertinent Family History: Unknown - Past Social History Smoking Status: Former Smoker Alcohol: None Drugs: Denies Home Situation {Lives}: With Family - CARDIAC Hx Cardiac Disorders: No - PULMONARY Hx Respiratory Disorders: Yes Hx Pneumonia: Yes Other/Comment: Hiccups - NEUROLOGICAL Hx Neurological Disorder: No - HEENT Hx HEENT Problems: No - RENAL Hx Chronic Kidney Disease: No - ENDOCRINE/METABOLIC Hx Endocrine Disorders: Yes Hx Diabetes Mellitus Type 2: Yes - HEMATOLOGICAL/ONCOLOGICAL Hx Blood Disorders: No - INTEGUMENTARY Hx Dermatological Problems: No - MUSCULOSKELETAL/RHEUMATOLOGICAL Hx Musculoskeletal Disorders: No Hx Falls: No - GASTROINTESTINAL Hx Gastrointestinal Disorders: No - GENITOURINARY/GYNECOLOGICAL Hx Genitourinary Disorders: No - PSYCHIATRIC Hx Psychophysiologic Disorder: No Hx Substance Use: No - SURGICAL HISTORY Hx Surgeries: Yes Other/Comment: ABDOMINAL SURGERY FROM ULCER. - ANESTHESIA Hx Anesthesia: Yes Hx Anesthesia Reactions: No Meds Home Medications: Home Medication List Medication Instructions Recorded Confirmed Type Acetaminophen [Tylenol 325mg tab] 650 mg PO Q6 PRN tab 04/05/17 Rx Ferrous Sulfate [Ferosul] 325 mg PO BID #60 04/05/17 Rx Insulin Detemir [Levemir] 20 unit SC HS #1 04/05/17 Rx Levofloxacin [Levaquin] 500 mg PO DAILY #5 tablet 04/05/17 Rx MetFORMIN [glucoPHAGE] 1,000 mg PO BID tab 04/05/17 Rx MetFORMIN [glucoPHAGE] 1,000 mg PO BID #60 04/05/17 Rx Metoprolol Tartrate [Lopressor] 6.25 mg PO Q12 #60 tab 04/05/17 Rx Allergies/Adverse Reactions: Allergies Allergy/AdvReac Type Severity Reaction Status Date / Time No Known Allergies Allergy Verified 03/28/17 10:48 - Medications Medications: Current Medications Enoxaparin Sodium (Lovenox) 40 mg SC DAILY [facility] PRN Reason: Protocol Last Admin: 03/29/17 09:18 Dose: 40 mg Ferrous Sulfate (Feosol) 325 mg PO BID [facility] Last Admin: 03/29/17 09:19 Dose: 325 mg Sodium Chloride (Sodium Chloride 0.9%) 1,000 mls @ 150 mls/hr IV .Q6H40M [facility] Last Admin: 03/29/17 02:55 Dose: Not Given Levofloxacin/Dextrose (Levaquin 500mg) 500 mg in 100 mls @ 100 mls/hr IVPB DAILY [facility] Last Admin: 03/29/17 10:00 Dose: 100 mls/hr Piperacillin Sod/Tazobactam (Sod 3.375 gm/ Sodium Chloride) 100 mls @ 100 mls/ hr IVPB 0000,0600,1200,1800 [facility] Last Admin: 03/29/17 05:26 Dose: 100 mls/hr Insulin Detemir (Levemir) 20 units SC [facility] Last Admin: 03/28/17 23:47 Dose: Not Given Insulin Human Regular (Humulin R) 0 units SC [facility] PRN Reason: Protocol Last Admin: 03/29/17 12:55 Dose: 2 units Metformin HCl (Glucophage) 1,000 mg PO BID [facility] Last Admin: 03/29/17 09:18 Dose: 1,000 mg Pantoprazole Sodium (Protonix Ec Tab) 40 mg PO DAILY [facility] Last Admin: 03/29/17 09:19 Dose: 40 mg Physical Exam - Constitutional Appears: No Acute Distress - Head Exam Head Exam: NORMAL INSPECTION - Eye Exam Eye Exam: PERRL - ENT Exam ENT Exam: Normal Oropharynx - Neck Exam Neck exam: Positive for: Normal Inspection - Respiratory Exam Respiratory Exam: Decreased Breath Sounds (b/l) - Cardiovascular Exam Cardiovascular Exam: Tachycardia - GI/Abdominal Exam GI & Abdominal Exam: Normal Bowel Sounds, Soft - Extremities Exam Extremities exam: Positive for: normal inspection - Back Exam Back exam: NORMAL INSPECTION - Neurological Exam Neurological exam: Alert, Oriented x3 Additional comments: No motor sensory deficit - Psychiatric Exam Psychiatric exam: Normal Mood - Skin Skin Exam: Normal Color, Warm Results - Vital Signs Recent Vital Signs: Last Vital Signs Temp 98.9 F 03/29/17 10:00 Pulse 105 H 03/29/17 10:00 Resp 20 03/29/17 10:00 BP 151/87 H 03/29/17 10:00 Pulse Ox 99 03/29/17 07:32 reviewed J.PLazaro - Labs Result Diagrams: 04/04/17 05:35 04/04/17 05:35 Labs: Laboratory Results - last 24 hr 03/28/17 03/29/17 03/29/17 23:44 05:20 05:20 WBC 4.8 RBC 3.39 L Hgb 11.2 L Hct 32.1 L MCV 94.6 H MCH 32.9 H MCHC 34.8 RDW 14.6 H Plt Count 170 MPV 7.0 L Neut % (Auto) 77.9 H Lymph % (Auto) 10.3 L Alexander % (Auto) 9.8 Eos % (Auto) 1.8 Baso % (Auto) 0.2 Neut # 3.7 Lymph # 0.5 L Alexander # 0.5 Eos # 0.1 Baso # 0.0 Sodium 130 L Potassium 4.6 Chloride 101 Carbon Dioxide 24 Anion Gap 10 BUN 10 Creatinine 0.9 Est GFR ( Amer) > 60 Est GFR (Non-Af Amer) > 60 POC Glucose (mg/dL) 139 H Random Glucose 95 Hemoglobin A1c Calcium 7.8 L TSH 3rd Generation 0.74 03/29/17 03/29/17 03/29/17 05:20 05:34 10:24 WBC RBC Hgb Hct MCV MCH MCHC RDW Plt Count MPV Neut % (Auto) Lymph % (Auto) Alexander % (Auto) Eos % (Auto) Baso % (Auto) Neut # Lymph # Alexander # Eos # Baso # Sodium Potassium Chloride Carbon Dioxide Anion Gap BUN Creatinine Est GFR ( Amer) Est GFR (Non-Af Amer) POC Glucose (mg/dL) 91 239 H Random Glucose Hemoglobin A1c 7.9 H Calcium TSH 3rd Generation reviewed J.P. - EKG Data EKG comments: reviewed J.P. - Imaging and Cardiology CT scan - chest Status: Report reviewed by me (Sanjiv) Chest x-ray Status: Report reviewed by me (Sanjiv) Assessment & Plan (1) Cavitating mass of lung Status: Acute Priority: High Comment: Right lung. (2) Cavitary lung disease Status: Acute Priority: High (3) PNA (pneumonia) Status: Acute Priority: High (4) Hiccups Status: Acute Priority: High - Assessment and Plan (Free Text) Plan: Continue L[facility] [place], planning FOB . F/U PPD, [employer] - Date & Time Date: 03/29/17 Time: 11:00
--- NOTE | 2017-03-29 17:08 | CP.PCM.CON ---
History of Present Illness - History of Present Illness History of Present Illness: 61 yo male coming for worsening hiccups. Had been seen earlier at [facility] and admitted for 5 nights for pneumonia treatment. However his hiccups were never treated Review of Systems - Constitutional Constitutional: absent: Chills - EENT Eyes: absent: Blind Spots Nose/Mouth/Throat: absent: Epistaxis - Cardiovascular Cardiovascular: absent: Chest Pain - Respiratory Respiratory: absent: Dyspnea - Gastrointestinal Gastrointestinal: As Per HPI. absent: Abdominal Pain Past Patient History - Tetanus Immunizations Tetanus Immunization: Unknown - Past Medical History & Family History Past Medical History?: No - Past Social History Smoking Status: Former Smoker - CARDIAC Hx Cardiac Disorders: No - PULMONARY Hx Respiratory Disorders: No - NEUROLOGICAL Hx Neurological Disorder: No - HEENT Hx HEENT Problems: No - RENAL Hx Chronic Kidney Disease: No - ENDOCRINE/METABOLIC Hx Endocrine Disorders: Yes Hx Diabetes Mellitus Type 2: Yes - HEMATOLOGICAL/ONCOLOGICAL Hx Blood Disorders: No - INTEGUMENTARY Hx Dermatological Problems: No - MUSCULOSKELETAL/RHEUMATOLOGICAL Hx Musculoskeletal Disorders: No Hx Falls: No - GASTROINTESTINAL Hx Gastrointestinal Disorders: No - GENITOURINARY/GYNECOLOGICAL Hx Genitourinary Disorders: No - PSYCHIATRIC Hx Psychophysiologic Disorder: No Hx Substance Use: No - SURGICAL HISTORY Hx Surgeries: Yes Other/Comment: ABDOMINAL SURGERY FROM ULCER. - ANESTHESIA Hx Anesthesia: Yes Hx Anesthesia Reactions: No Meds Allergies/Adverse Reactions: Allergies Allergy/AdvReac Type Severity Reaction Status Date / Time No Known Allergies Allergy Verified 03/28/17 10:48 - Medications Medications: Current Medications Enoxaparin Sodium (Lovenox) 40 mg SC DAILY [facility] PRN Reason: Protocol Last Admin: 03/29/17 09:18 Dose: 40 mg Ferrous Sulfate (Feosol) 325 mg PO BID [facility] Last Admin: 03/29/17 09:19 Dose: 325 mg Sodium Chloride (Sodium Chloride 0.9%) 1,000 mls @ 150 mls/hr IV .Q6H40M [facility] Last Admin: 03/29/17 02:55 Dose: Not Given Levofloxacin/Dextrose (Levaquin 500mg) 500 mg in 100 mls @ 100 mls/hr IVPB DAILY [facility] Last Admin: 03/29/17 10:00 Dose: 100 mls/hr Piperacillin Sod/Tazobactam (Sod 3.375 gm/ Sodium Chloride) 100 mls @ 100 mls/ hr IVPB 0000,0600,1200,1800 [facility] Last Admin: 03/29/17 05:26 Dose: 100 mls/hr Insulin Detemir (Levemir) 20 units SC HS [facility] Last Admin: 03/28/17 23:47 Dose: Not Given Insulin Human Regular (Humulin R) 0 units SC ACHS [facility] PRN Reason: Protocol Last Admin: 03/29/17 12:55 Dose: 2 units Metformin HCl (Glucophage) 1,000 mg PO BID [facility] Last Admin: 03/29/17 09:18 Dose: 1,000 mg Pantoprazole Sodium (Protonix Ec Tab) 40 mg PO DAILY [facility] Last Admin: 03/29/17 09:19 Dose: 40 mg Physical Exam - Constitutional Appears: No Acute Distress - Head Exam Head Exam: ATRAUMATIC - Eye Exam Eye Exam: Normal appearance - ENT Exam ENT Exam: Mucous Membranes Moist - Neck Exam Neck exam: Positive for: Normal Inspection - Respiratory Exam Respiratory Exam: Clear to Auscultation Bilateral, NORMAL BREATHING PATTERN - Cardiovascular Exam Cardiovascular Exam: REGULAR RHYTHM, +S1, +S2 - GI/Abdominal Exam GI & Abdominal Exam: Normal Bowel Sounds, Soft. absent: Tenderness Results - Vital Signs Recent Vital Signs: Last Vital Signs Temp 99.5 F 03/29/17 16:38 Pulse 135 H 03/29/17 16:38 Resp 20 03/29/17 16:38 BP 146/81 03/29/17 16:38 Pulse Ox 97 03/29/17 16:38 - Labs Result Diagrams: 03/29/17 05:20 03/29/17 05:20 Labs: Laboratory Results - last 24 hr 03/28/17 03/29/17 03/29/17 23:44 05:20 05:20 WBC 4.8 RBC 3.39 L Hgb 11.2 L Hct 32.1 L MCV 94.6 H MCH 32.9 H MCHC 34.8 RDW 14.6 H Plt Count 170 MPV 7.0 L Neut % (Auto) 77.9 H Lymph % (Auto) 10.3 L Cherry % (Auto) 9.8 Eos % (Auto) 1.8 Baso % (Auto) 0.2 Neut # 3.7 Lymph # 0.5 L Cherry # 0.5 Eos # 0.1 Baso # 0.0 Sodium 130 L Potassium 4.6 Chloride 101 Carbon Dioxide 24 Anion Gap 10 BUN 10 Creatinine 0.9 Est GFR ( Amer) > 60 Est GFR (Non-Af Amer) > 60 POC Glucose (mg/dL) 139 H Random Glucose 95 Hemoglobin A1c Calcium 7.8 L TSH 3rd Generation 0.74 03/29/17 03/29/17 03/29/17 05:20 05:34 10:24 WBC RBC Hgb Hct MCV MCH MCHC RDW Plt Count MPV Neut % (Auto) Lymph % (Auto) Cherry % (Auto) Eos % (Auto) Baso % (Auto) Neut # Lymph # Cherry # Eos # Baso # Sodium Potassium Chloride Carbon Dioxide Anion Gap BUN Creatinine Est GFR ( Amer) Est GFR (Non-Af Amer) POC Glucose (mg/dL) 91 239 H Random Glucose Hemoglobin A1c 7.9 H Calcium TSH 3rd Generation Assessment & Plan (1) Intractable hiccups Assessment and Plan: Patient reports that hiccups have stopped since receiving IM thorazine.May be related to lung lesions. If symptoms return possible upper endoscopy Saturday. Status: Acute
--- NOTE | 2017-03-29 17:23 | CARD ---
APPROVED REPORT EKG Measurement Heart [id number] <Conclusion> Sinus tachycardia Possible Left atrial enlargement Incomplete right bundle branch block Borderline ECG
[2017-03-29] MEDS: Insulin Detemir 100 Units/ml Inj SC SCH (21:47)
[2017-03-29 22:18] LABS: HEPATITIS A IGM NEGATIVE (NEGATIVE)
[2017-03-29 22:19] LABS: HEPATITIS B CORE AB NEGATIVE (NEGATIVE)
[2017-03-29 22:31] LABS: HEPATITIS C ANTIBODY NEGATIVE (NEGATIVE)
[2017-03-29 23:17] LABS: HEPATITIS B SURFACE AG POSITIVE (NEGATIVE)
[2017-03-30] MEDS: Piperacillin/Tazobact 3.375 GM in Sodium Chloride 0.9% 100 ML IVPB SCH ×3 (05:04→23:01)
[2017-03-30] MEDS: Insulin Regular 100 units/ml SC SCH ×3 (06:42→21:46)
[2017-03-30 07:46] LABS: BLOOD UREA NITROGEN 14 mg/dl (9-20); CALCIUM 7.7 mg/dL (8.4-10.2); GFR AFRICAN-AMERICAN > 60; GFR NON-AFRICAN AMERICAN > 60
[2017-03-30] MEDS: Sodium Chloride 0.9% 1,000 ML IV SCH ×3 (08:01→23:03)
[2017-03-30] MEDS: levoFLOXacin 500 mg in D5W 500 MG/100 ML BAG IVPB SCH (08:56)
[2017-03-30] MEDS: Enoxaparin 40 mg Syringe SC SCH (08:56)
[2017-03-30] MEDS: Pantoprazole 40 mg EC Tab PO SCH (08:57)
[2017-03-30] MEDS ORDERED: Insulin Detemir 100 Units/ml Inj SC ONE (09:00)
[2017-03-30] MEDS ORDERED: Piperacillin/Tazobact 3.375 gm Inj IVPB ONE (09:00)
[2017-03-30] MEDS ORDERED: Insulin Regular 100 units/ml ONE (09:00)
--- NOTE | 2017-03-30 21:59 | CP.PCM.PN ---
Subjective - Date & Time of Evaluation Date of Evaluation: 03/30/17 Time of Evaluation: 15:00 - Subjective Subjective: F/U Cavity Lung disease, Mass. Pt with no cough, no SOB, no hiccups Objective - Vital Signs/Intake and Output Vital Signs (last 24 hours): Temp Pulse Resp BP Pulse Ox 97.7 F 93 H 20 119/75 100 03/30/17 09:00 03/30/17 09:00 03/30/17 09:00 03/30/17 09:00 03/30/17 09:00 - Medications Medications: Current Medications Enoxaparin Sodium (Lovenox) [address] [facility] PRN Reason: Protocol Last Admin: 03/30/17 08:56 Dose: 40 mg Ferrous Sulfate (Feosol) [address] [facility] Last Admin: 03/30/17 08:57 Dose: 325 mg Sodium Chloride (Sodium Chloride 0.9%) 1,000 mls @ 150 mls/hr IV .Q6H40M [facility] Last Admin: 03/30/17 12:30 Dose: Not Given Levofloxacin/Dextrose (Levaquin 500mg) 500 mg in 100 mls @ 100 mls/hr IVPB DAILY [facility] Last Admin: 03/30/17 08:56 Dose: 100 mls/hr Piperacillin Sod/Tazobactam (Sod 3.375 gm/ Sodium Chloride) 100 mls @ 100 mls/ hr IVPB 0000,0600,1200,1800 [facility] Last Admin: 03/30/17 12:31 Dose: 100 mls/hr Insulin Detemir (Levemir) [address] [facility] Last Admin: 03/29/17 21:47 Dose: Not Given Insulin Human Regular (Humulin R) [address] [facility] PRN Reason: Protocol Last Admin: 03/30/17 21:46 Dose: Not Given Metformin HCl (Glucophage) 1,[address] [facility] Last Admin: 03/30/17 08:57 Dose: 1,000 mg Pantoprazole Sodium (Protonix Ec Tab) [address] [facility] Last Admin: 03/30/17 08:57 Dose: 40 mg - Labs Labs: 03/29/17 05:20 03/30/17 05:30 - Constitutional Appears: No Acute Distress - Head Exam Head Exam: NORMAL INSPECTION - Eye Exam Eye Exam: PERRL - ENT Exam ENT Exam: Normal Oropharynx - Neck Exam Neck Exam: Normal Inspection - Respiratory Exam Respiratory Exam: Decreased Breath Sounds (b/l) - Cardiovascular Exam Cardiovascular Exam: REGULAR RHYTHM - GI/Abdominal Exam GI & Abdominal Exam: Soft, Normal Bowel Sounds - Extremities Exam Extremities Exam: Normal Inspection - Back Exam Back Exam: NORMAL INSPECTION - Neurological Exam Neurological Exam: Alert, Oriented x3. absent: Motor Sensory Deficit - Psychiatric Exam Psychiatric exam: Normal Mood - Skin Skin Exam: Warm Assessment and Plan (1) Cavitating mass of lung Status: Acute (2) Cavitary lung disease Status: Acute (3) PNA (pneumonia) Status: Acute (4) Hiccups Status: Acute - Assessment and Plan (Free Text) Plan: Pt had induced sputum x 1 today, continue Zosyn, Levaquin and rest of Tx.
[2017-03-30] MEDS: Insulin Detemir 100 Units/ml Inj SC SCH (22:11)
[2017-03-31] MEDS: Sodium Chloride 0.9% 1,000 ML IV SCH ×4 (01:35→17:05)
[2017-03-31] MEDS: Piperacillin/Tazobact 3.375 GM in Sodium Chloride 0.9% 100 ML IVPB SCH ×4 (05:44→17:06)
[2017-03-31] MEDS: Insulin Regular 100 units/ml SC SCH ×4 (06:40→22:00)
[2017-03-31] MEDS: levoFLOXacin 500 mg in D5W 500 MG/100 ML BAG IVPB SCH (08:37)
[2017-03-31] MEDS: Pantoprazole 40 mg EC Tab PO SCH (08:38)
[2017-03-31] MEDS: Enoxaparin 40 mg Syringe SC SCH (08:38)
--- NOTE | 2017-03-31 12:55 | CP.PCM.PN ---
Subjective - Date & Time of Evaluation Date of Evaluation: 03/31/17 Time of Evaluation: 09:00 - Subjective Subjective: afebrile no sputum cultures available thus far CT Chest shows: Multifocal infiltrates primarily affecting the RLL. Cavity mass in the anterior segment of the RUL. Thick walled cavity mass superior segment RLL. Benign cavity masses RML. Objective - Vital Signs/Intake and Output Vital Signs (last 24 hours): Temp Pulse Resp BP Pulse Ox 97.8 F 81 20 142/82 100 03/31/17 08:22 03/31/17 08:22 03/31/17 08:22 03/31/17 08:22 03/31/17 08:22 - Medications Medications: Current Medications Enoxaparin Sodium (Lovenox) 40 mg SC DAILY [facility] PRN Reason: Protocol Last Admin: 03/31/17 08:38 Dose: 40 mg Ferrous Sulfate (Feosol) 325 mg PO BID [facility] Last Admin: 03/31/17 09:49 Dose: 325 mg Sodium Chloride (Sodium Chloride 0.9%) 1,000 mls @ 150 mls/hr IV .Q6H40M [facility] Last Admin: 03/31/17 08:38 Dose: Not Given Levofloxacin/Dextrose (Levaquin 500mg) 500 mg in 100 mls @ 100 mls/hr IVPB DAILY [facility] Last Admin: 03/31/17 08:37 Dose: 100 mls/hr Piperacillin Sod/Tazobactam (Sod 3.375 gm/ Sodium Chloride) 100 mls @ 100 mls/ hr IVPB 0000,0600,1200,1800 [facility] Last Admin: 03/31/17 11:31 Dose: 100 mls/hr Insulin Detemir (Levemir) 20 units SC HS [facility] Last Admin: 03/30/17 22:11 Dose: Not Given Insulin Human Regular (Humulin R) 0 units SC ACHS [facility] PRN Reason: Protocol Last Admin: 03/31/17 11:28 Dose: Not Given Metformin HCl (Glucophage) 1,000 mg PO BID [facility] Last Admin: 03/31/17 08:37 Dose: 1,000 mg Pantoprazole Sodium (Protonix Ec Tab) 40 mg PO DAILY [facility] Last Admin: 03/31/17 08:38 Dose: 40 mg - Labs Labs: 03/29/17 05:20 07/01/17 05:30 - Constitutional Appears: Non-toxic, Cachectic, Chronically Ill - Head Exam Head Exam: NORMOCEPHALIC - Eye Exam Eye Exam: PERRL. absent: Scleral icterus - ENT Exam ENT Exam: Mucous Membranes Dry - Neck Exam Neck Exam: absent: Lymphadenopathy - Respiratory Exam Respiratory Exam: Decreased Breath Sounds, Rhonchi - Cardiovascular Exam Cardiovascular Exam: REGULAR RHYTHM, +S1, +S2 - GI/Abdominal Exam GI & Abdominal Exam: Distended, Soft. absent: Tenderness - Rectal Exam Rectal Exam: Deferred - Exam Exam: NORMAL INSPECTION - Extremities Exam Extremities Exam: absent: Calf Tenderness, Pedal Edema - Back Exam Back Exam: absent: CVA tenderness (L), CVA tenderness (R) - Neurological Exam Neurological Exam: Alert, Awake, Oriented x3 - Psychiatric Exam Psychiatric exam: Normal Mood - Skin Skin Exam: Dry Assessment and Plan (1) DM2 (diabetes mellitus, type 2) Status: Acute (2) Intractable hiccups Status: Deleted (3) Mass of lung Status: Acute - Assessment and Plan (Free Text) Assessment: CT Chest shows: Multifocal infiltrates primarily affecting the RLL. Cavity mass in the anterior segment of the RUL. Thick walled cavity mass superior segment RLL. Benign cavity masses RML. await sputum will need fob /bx
[2017-03-31] MEDS ORDERED: Sodium Chloride 3% for Inhalation 4 ML VIAL.NEB IH PRN (15:52)
--- NOTE | 2017-03-31 15:58 | CP.PCM.PN ---
Subjective - Date & Time of Evaluation Date of Evaluation: 03/31/17 Time of Evaluation: 15:00 - Subjective Subjective: Pt seen and examined. Claimed hiccups came back but was spontaneously relieved without medication. Denied any other complaint. Objective - Vital Signs/Intake and Output Vital Signs (last 24 hours): Temp Pulse Resp BP Pulse Ox 97.8 F 81 20 142/82 100 03/31/17 08:22 03/31/17 08:22 03/31/17 08:22 03/31/17 08:22 03/31/17 08:22 - Medications Medications: Current Medications Enoxaparin Sodium (Lovenox) 40 mg SC DAILY [facility] PRN Reason: Protocol Last Admin: 03/31/17 08:38 Dose: 40 mg Ferrous Sulfate (Feosol) 325 mg PO BID [facility] Last Admin: 03/31/17 09:49 Dose: 325 mg Sodium Chloride (Sodium Chloride 0.9%) 1,000 mls @ 150 mls/hr IV .Q6H40M [facility] Last Admin: 03/31/17 08:38 Dose: Not Given Levofloxacin/Dextrose (Levaquin 500mg) 500 mg in 100 mls @ 100 mls/hr IVPB DAILY [facility] Last Admin: 03/31/17 08:37 Dose: 100 mls/hr Piperacillin Sod/Tazobactam (Sod 3.375 gm/ Sodium Chloride) 100 mls @ 100 mls/ hr IVPB 0000,0600,1200,1800 [facility] Last Admin: 03/31/17 11:31 Dose: 100 mls/hr Insulin Detemir (Levemir) 20 units SC HS [facility] Last Admin: 03/30/17 22:11 Dose: Not Given Insulin Human Regular (Humulin R) 0 units SC ACHS [facility] PRN Reason: Protocol Last Admin: 03/31/17 11:28 Dose: Not Given Metformin HCl (Glucophage) 1,000 mg PO BID [facility] Last Admin: 03/31/17 08:37 Dose: 1,000 mg Pantoprazole Sodium (Protonix Ec Tab) 40 mg PO DAILY [facility] Last Admin: 03/31/17 08:38 Dose: 40 mg - Labs Labs: 03/29/17 05:20 03/30/17 05:30 - Constitutional Appears: No Acute Distress - Head Exam Head Exam: ATRAUMATIC - Eye Exam Eye Exam: absent: Scleral icterus - ENT Exam ENT Exam: Mucous Membranes Moist - Neck Exam Neck Exam: absent: Meningismus - Respiratory Exam Respiratory Exam: absent: Rhonchi, Wheezes, Respiratory Distress - Cardiovascular Exam Cardiovascular Exam: REGULAR RHYTHM, +S1, +S2 - GI/Abdominal Exam GI & Abdominal Exam: Soft. absent: Tenderness - Rectal Exam Rectal Exam: Deferred - Extremities Exam Extremities Exam: absent: Pedal Edema - Neurological Exam Neurological Exam: Alert, Oriented x3 - Psychiatric Exam Psychiatric exam: Normal Affect - Skin Skin Exam: Dry, Intact Assessment and Plan (1) Mass of lung Status: Acute (2) Intractable hiccups Status: Deleted (3) DM2 (diabetes mellitus, type 2) Status: Acute (4) Hyponatremia Status: Acute (5) Hyperkalemia Status: Acute (6) DVT prophylaxis Status: Acute - Assessment and Plan (Free Text) Assessment: 61 yo male with history of DM2 came in because of recurrent hiccups relieved with self induced vomiting. Loss 25 lbs in 3 months. Admitted at [facility] because of pneumonia but never got rid of the hiccups. Denied fever, chills, SOB or coughing. (1) Mass of lung had 15 mm erythema on PPD continue isolation untill sputum culture results come back negative for AFB Multifocal infiltrate on RUL, RLL and RML with cavitations. Zosyn 375gm IV q 6hrs. Levaquin 500mg IV daily. Pulmonary consult with Dr Brand ID consult with Dr Cano for possible bronchoscopy (2) Intractable hiccups ( Resolved) recurred? Chlorpromazine 25 PO TID prn (3) DM2 (diabetes mellitus, type 2) diabetic diet. accuchek ACHS with low Lispro coverage. Metformin 1000mg PO BID. Levemir 20 units SC HS. HBA1C: 7.9 (4) Hyponatremia improving with IV hydration with NSS serum Na: 130 repeat BMP in am (5) Hyperkalemia resolved (6) DVT prophylaxis Lovenox 40mg SC daily
--- NOTE | 2017-03-31 17:29 | CP.PCM.PN ---
Subjective - Date & Time of Evaluation Date of Evaluation: 03/31/17 Time of Evaluation: 13:30 - Subjective Subjective: no SOB , no Chest congestion , since yesterday occasional episodes of hiccup, relieved spontaneously Objective - Vital Signs/Intake and Output Vital Signs (last 24 hours): Temp Pulse Resp BP Pulse Ox 97.6 F 106 H 20 160/90 H 99 03/31/17 16:13 03/31/17 16:13 03/31/17 16:13 03/31/17 16:13 03/31/17 16:13 - Medications Medications: Current Medications Enoxaparin Sodium (Lovenox) 40 mg SC DAILY [facility] PRN Reason: Protocol Last Admin: 03/31/17 08:38 Dose: 40 mg Ferrous Sulfate (Feosol) 325 mg PO BID [facility] Last Admin: 03/31/17 17:12 Dose: 325 mg Sodium Chloride (Sodium Chloride 0.9%) 1,000 mls @ 150 mls/hr IV .Q6H40M [facility] Last Admin: 03/31/17 17:05 Dose: 150 mls/hr Levofloxacin/Dextrose (Levaquin 500mg) 500 mg in 100 mls @ 100 mls/hr IVPB DAILY [facility] Last Admin: 03/31/17 08:37 Dose: 100 mls/hr Piperacillin Sod/Tazobactam (Sod 3.375 gm/ Sodium Chloride) 100 mls @ 100 mls/ hr IVPB 0000,0600,1200,1800 [facility] Last Admin: 03/31/17 17:06 Dose: 100 mls/hr Insulin Detemir (Levemir) 20 units SC HS [facility] Last Admin: 03/30/17 22:11 Dose: Not Given Insulin Human Regular (Humulin R) 0 units SC ACHS [facility] PRN Reason: Protocol Last Admin: 03/31/17 17:07 Dose: 1 units Metformin HCl (Glucophage) 1,000 mg PO BID [facility] Last Admin: 03/31/17 17:09 Dose: 1,000 mg Pantoprazole Sodium (Protonix Ec Tab) 40 mg PO DAILY [facility] Last Admin: 03/31/17 08:38 Dose: 40 mg - Labs Labs: 03/29/17 05:20 03/30/17 05:30 - Constitutional Appears: No Acute Distress - Head Exam Head Exam: NORMAL INSPECTION - Eye Exam Eye Exam: PERRL - ENT Exam ENT Exam: Normal Exam - Neck Exam Neck Exam: Normal Inspection - Respiratory Exam Respiratory Exam: Decreased Breath Sounds - Cardiovascular Exam Cardiovascular Exam: REGULAR RHYTHM - GI/Abdominal Exam GI & Abdominal Exam: Soft, Normal Bowel Sounds - Extremities Exam Extremities Exam: Normal Inspection - Back Exam Back Exam: NORMAL INSPECTION - Neurological Exam Neurological Exam: Alert, CN II-XII Intact, Oriented x3. absent: Motor Sensory Deficit - Psychiatric Exam Psychiatric exam: Normal Mood - Skin Skin Exam: Warm Assessment and Plan (1) Cavitating mass of lung Status: Acute (2) Cavitary lung disease Status: Acute (3) PNA (pneumonia) Status: Acute (4) Hiccups Status: Acute - Assessment and Plan (Free Text) Plan: PPD (+) , f/u sputum AFB, planning FOB Bx
[2017-04-01] MEDS: Piperacillin/Tazobact 3.375 GM in Sodium Chloride 0.9% 100 ML IVPB SCH ×4 (00:15→17:26)
[2017-04-01] MEDS: Sodium Chloride 0.9% 1,000 ML IV SCH (04:18)
[2017-04-01] MEDS: Dextrose 5%/0.9% NS 1,000 ML IV SCH (06:14)
[2017-04-01] MEDS: Insulin Regular 100 units/ml SC SCH ×4 (06:42→22:04)
[2017-04-01 07:34] LABS: BASO % 0.3 % (0.0-2.0); EOS # 0.1 K/uL (0.0-0.7); EOS % 1.9 % (0.0-4.0); HEMOGLOBIN 10.2 g/dL (12.0-18.0); LYMPH # 0.6 K/uL (1.0-4.3); LYMPH % 15.7 % (20.0-40.0); MEAN CELL VOLUME 95.3 fl (80.0-94.0); MEAN CORPUSCULAR HEMOGLOBIN 33.2 pg (27.0-31.0); MEAN CORPUSCULAR HGB CONC 34.8 g/dL (33.0-37.0); MEAN PLATELET VOLUME 7.2 fl (7.2-11.7); MONO # 0.4 K/uL (0.0-0.8); MONO % 9.1 % (0.0-10.0); NEUT # 2.9 K/uL (1.8-7.0); NRBC % 0.2 % (0.0-0.0); RBC 3.07 Mil/uL (4.40-5.90); RED CELL DISTRIBUTION WIDTH 14.8 % (11.5-14.5)
[2017-04-01 07:41] LABS: PROTHROMBIN TIME 14.6 Seconds (9.8-13.1)
[2017-04-01 07:42] LABS: INR 1.3 (0.9-1.2); PARTIAL THROMBOPLASTIN TIME 42.7 Seconds (25.6-37.1)
[2017-04-01] MEDS: Pantoprazole 40 mg EC Tab PO SCH (09:04)
[2017-04-01] MEDS: levoFLOXacin 500 mg in D5W 500 MG/100 ML BAG IVPB SCH (09:20)
[2017-04-01 10:40] LABS: BLOOD UREA NITROGEN 12 mg/dl (9-20); CALCIUM 8.1 mg/dL (8.4-10.2); GFR AFRICAN-AMERICAN > 60; GFR NON-AFRICAN AMERICAN > 60
[2017-04-01] MEDS ORDERED: Etomidate 20 mg/10ml Inj IV ONE (11:21)
[2017-04-01] MEDS ORDERED: Midazolam 2 MG/2 ML VIAL ONE (11:22)
[2017-04-01] MEDS ORDERED: Propofol 10 mg/ml Inj (20 ML) ONE (11:22)
--- NOTE | 2017-04-01 11:29 | CP.PCM.PN ---
Subjective - Date & Time of Evaluation Date of Evaluation: 04/01/17 Time of Evaluation: 11:26 - Subjective Subjective: pt doing well today +sputum specimen at bedside feeling well, denies sob, cp. for bronch today vss, nad Objective - Vital Signs/Intake and Output Vital Signs (last 24 hours): Temp Pulse Resp BP Pulse Ox 97.7 F 91 H 20 138/77 100 04/01/17 08:21 04/01/17 08:21 04/01/17 08:21 04/01/17 08:21 04/01/17 08:21 - Medications Medications: Current Medications Ferrous Sulfate (Feosol) 325 mg PO BID [facility] Last Admin: 04/01/17 09:01 Dose: Not Given Levofloxacin/Dextrose (Levaquin 500mg) 500 mg in 100 mls @ 100 mls/hr IVPB DAILY [facility] Last Admin: 04/01/17 09:20 Dose: 100 mls/hr Piperacillin Sod/Tazobactam (Sod 3.375 gm/ Sodium Chloride) 100 mls @ 100 mls/ hr IVPB 0000,0600,1200,1800 [facility] Last Admin: 04/01/17 05:21 Dose: 100 mls/hr Dextrose/Sodium Chloride (Dextrose 5%/0.9% Ns 1000 Ml) 1,000 mls @ 100 mls/hr IV .Q10H [facility] Stop: 04/02/17 06:06 Last Admin: 04/01/17 06:14 Dose: 100 mls/hr Insulin Detemir (Levemir) 20 units SC [facility] Last Admin: 03/30/17 22:11 Dose: Not Given Insulin Human Regular (Humulin R) 0 units SC [facility] PRN Reason: Protocol Last Admin: 04/01/17 06:42 Dose: Not Given Metformin HCl (Glucophage) 1,000 mg PO BID [facility] Last Admin: 04/01/17 09:05 Dose: Not Given Pantoprazole Sodium (Protonix Ec Tab) 40 mg PO DAILY [facility] Last Admin: 04/01/17 09:04 Dose: Not Given - Labs Labs: 04/01/17 06:30 04/01/17 06:30 PT 14.6 Seconds (9.8-13.1) H 04/01/17 06:30 INR 1.3 (0.9-1.2) H 04/01/17 06:30 APTT 42.7 Seconds (25.6-37.1) H 04/01/17 06:30 - Constitutional Appears: Non-toxic, No Acute Distress - Head Exam Head Exam: ATRAUMATIC, NORMOCEPHALIC - Eye Exam Eye Exam: EOMI, Normal appearance, PERRL - ENT Exam ENT Exam: Mucous Membranes Moist, Normal Oropharynx - Neck Exam Neck Exam: Full ROM, Normal Inspection - Respiratory Exam Respiratory Exam: Clear to Ausculation Bilateral, NORMAL BREATHING PATTERN - Cardiovascular Exam Cardiovascular Exam: RRR, +S1, +S2 - GI/Abdominal Exam GI & Abdominal Exam: Soft, Normal Bowel Sounds. absent: Tenderness, Organomegaly - Extremities Exam Extremities Exam: Normal Capillary Refill. absent: Calf Tenderness - Back Exam Back Exam: absent: CVA tenderness (L), CVA tenderness (R) - Neurological Exam Neurological Exam: Alert, Awake - Psychiatric Exam Psychiatric exam: Normal Affect, Normal Mood - Skin Skin Exam: Dry, Warm Assessment and Plan - Assessment and Plan (Free Text) Plan: 61 yo male with history of DM2 came in because of recurrent hiccups relieved with self induced vomiting. Loss 25 lbs in 3 months. Admitted at [facility] because of pneumonia, hiccups self-limited. Patient found to have mass in lung, with positive PPD. Imaging + for multifocal infiltrates RUL, RML, RLL with cavitations. Concern for TB. Bronch 04/01/[address] Cano appreciated and followed. (1) Mass of lung had 15 mm erythema on PPD continue isolation untill sputum culture results come back negative for AFBx3 Multifocal infiltrate on RUL, RLL and RML with cavitations. Zosyn 375gm IV q 6hrs. Levaquin 500mg IV daily. Pulmonary consult with Dr Brand ID consult with Dr Cano Bronchoscopy today (2) Intractable hiccups ( Resolved) resolved. Chlorpromazine 25 PO TID prn (3) DM2 (diabetes mellitus, type 2) diabetic diet. accuchek ACHS with low Lispro coverage. Metformin 1000mg PO BID. Levemir 20 units SC HS. HBA1C: 7.9 (4) Hyponatremia improving with IV hydration with NSS serum Na: 130 repeat BMP in am (5) Hyperkalemia resolved (6) DVT prophylaxis Lovenox 40mg SC daily
[2017-04-01] MEDS ORDERED: Lactated Ringer's 500 ML IV ONE (11:30)
[2017-04-01] MEDS ORDERED: Lidocaine 1% Inj (20ml) INFIL ONE ×2 (11:50)
[2017-04-01] MEDS ORDERED: Lidocaine 2% GEL TOP ONE (11:50)
[2017-04-01] MEDS ORDERED: EPINEPHrine 1 mg/ml (1:1000) Inj IV ONE (12:00)
--- NOTE | 2017-04-01 12:19 | CP.PCM.PN ---
Subjective - Date & Time of Evaluation Date of Evaluation: 04/01/17 Time of Evaluation: 07:00 - Subjective Subjective: feeling well, denies sob, cp. for bronch today Objective - Vital Signs/Intake and Output Vital Signs (last 24 hours): Temp Pulse Resp BP Pulse Ox 97.7 F 91 H 20 138/77 100 04/01/17 08:21 04/01/17 08:21 04/01/17 08:21 04/01/17 08:21 04/01/17 08:21 - Medications Medications: Current Medications Ferrous Sulfate (Feosol) 325 mg PO BID [facility] Last Admin: 04/01/17 09:01 Dose: Not Given Levofloxacin/Dextrose (Levaquin 500mg) 500 mg in 100 mls @ 100 mls/hr IVPB DAILY [facility] Last Admin: 04/01/17 09:20 Dose: 100 mls/hr Piperacillin Sod/Tazobactam (Sod 3.375 gm/ Sodium Chloride) 100 mls @ 100 mls/ hr IVPB 0000,0600,1200,1800 [facility] Last Admin: 04/01/17 05:21 Dose: 100 mls/hr Dextrose/Sodium Chloride (Dextrose 5%/0.9% Ns 1000 Ml) 1,000 mls @ 100 mls/hr IV .Q10H [facility] Stop: 04/02/17 06:06 Last Admin: 04/01/17 06:14 Dose: 100 mls/hr Insulin Detemir (Levemir) 20 units SC [facility] Last Admin: 03/30/17 22:11 Dose: Not Given Insulin Human Regular (Humulin R) 0 units SC [facility] PRN Reason: Protocol Last Admin: 04/01/17 06:42 Dose: Not Given Metformin HCl (Glucophage) 1,000 mg PO BID [facility] Last Admin: 04/01/17 09:05 Dose: Not Given Pantoprazole Sodium (Protonix Ec Tab) 40 mg PO DAILY [facility] Last Admin: 04/01/17 09:04 Dose: Not Given - Labs Labs: 04/01/17 06:30 04/01/17 06:30 PT 14.6 Seconds (9.8-13.1) H 04/01/17 06:30 INR 1.3 (0.9-1.2) H 04/01/17 06:30 APTT 42.7 Seconds (25.6-37.1) H 04/01/17 06:30 - Constitutional Appears: Non-toxic, Chronically Ill - Head Exam Head Exam: NORMOCEPHALIC - Eye Exam Eye Exam: absent: Scleral icterus - ENT Exam ENT Exam: Mucous Membranes Dry - Neck Exam Neck Exam: absent: Lymphadenopathy - Respiratory Exam Respiratory Exam: Decreased Breath Sounds - Cardiovascular Exam Cardiovascular Exam: REGULAR RHYTHM, +S1, +S2 - GI/Abdominal Exam GI & Abdominal Exam: Distended, Soft. absent: Tenderness - Rectal Exam Rectal Exam: Deferred - Exam Exam: NORMAL INSPECTION Assessment and Plan (1) DM2 (diabetes mellitus, type 2) Status: Acute (2) Intractable hiccups Status: Deleted (3) Mass of lung Status: Acute
[2017-04-01] MEDS ORDERED: Lactated Ringer's 1,000 ML IV SCH (12:22)
--- NOTE | 2017-04-01 13:07 | RAD ---
HISTORY: post bronchoscopy COMPARISON: Comparison chest dated 04/01/2027 08:13 a.m. comparison also made with CTA chest dated 03/28/2017. FINDINGS: LUNGS: Re- demonstrated are patchy infiltrate changes throughout the right lung. Right-sided basilar atelectasis and effusion again noted. Previously described cavitary lesion in the right lower lobe poorly identified. . Movetostartofclinicalhistory PLEURA: No definitive pneumothorax. CARDIOVASCULAR: Normal. OSSEOUS STRUCTURES: No significant abnormalities. VISUALIZED UPPER ABDOMEN: Normal. OTHER FINDINGS: None. IMPRESSION: Re- demonstrated are patchy infiltrate changes throughout the right lung. Right-sided basilar atelectasis and effusion again noted. Previously described cavitary lesion in the right lower lobe poorly identified. .
[2017-04-01] MEDS ORDERED: Lactated Ringer's 1,000 ML IV ONE (13:35)
--- NOTE | 2017-04-01 14:47 | RAD ---
PROCEDURE: CHEST RADIOGRAPH, 1 VIEW. Portable study 08:00 HISTORY: Possible Bronchoscopy today COMPARISON: 03/28/2017 FINDINGS: LUNGS: Stable right lung infiltrates. PLEURA: Stable parotid pleural effusion. CARDIOVASCULAR: Normal. OSSEOUS STRUCTURES: No significant abnormalities. VISUALIZED UPPER ABDOMEN: Normal. OTHER FINDINGS: None. IMPRESSION: No significant interval change compared to the prior examination(s).
--- NOTE | 2017-04-01 15:08 | RAD ---
PROCEDURE: Intraoperative Fluoroscopy. HISTORY: BRONCHOSCOPY FINDINGS: Fluoroscopic assistance was provided. 348.8 seconds fluoroscopy time utilized during this procedure. Radiation dose = 33.69 mGy Please refer to operative report for additional details
--- NOTE | 2017-04-01 17:04 | CP.PCM.PN ---
Subjective - Date & Time of Evaluation Date of Evaluation: 04/01/17 Time of Evaluation: 13:00 - Subjective Subjective: Cavitating mass of lung. Pt is seen post Bronchoscopy Bx, no cough, no SOB, no chest congestion. Objective - Vital Signs/Intake and Output Vital Signs (last 24 hours): Temp Pulse Resp BP Pulse Ox 97.3 F L 73 20 152/87 H 100 04/01/17 16:07 04/01/17 16:07 04/01/17 16:07 04/01/17 16:07 04/01/17 16:07 Intake and Output: 04/01/17 04/01/17 06:59 18:59 Intake Total 400 Balance 400 - Medications Medications: Current Medications Ferrous Sulfate (Feosol) 325 mg PO BID [facility] Last Admin: 04/01/17 09:01 Dose: Not Given Levofloxacin/Dextrose (Levaquin 500mg) 500 mg in 100 mls @ 100 mls/hr IVPB DAILY [facility] Last Admin: 04/01/17 09:20 Dose: 100 mls/hr Piperacillin Sod/Tazobactam (Sod 3.375 gm/ Sodium Chloride) 100 mls @ 100 mls/ hr IVPB 0000,0600,1200,1800 [facility] Last Admin: 04/01/17 05:21 Dose: 100 mls/hr Dextrose/Sodium Chloride (Dextrose 5%/0.9% Ns 1000 Ml) 1,000 mls @ 100 mls/hr IV .Q10H [facility] Stop: 04/02/17 06:06 Last Admin: 04/01/17 06:14 Dose: 100 mls/hr Lactated Ringer's (Lactated Ringer's) 1,000 mls @ 75 mls/hr IV .[id number] [facility] Insulin Detemir (Levemir) 20 units SC HS [facility] Last Admin: 03/30/17 22:11 Dose: Not Given Insulin Human Regular (Humulin R) 0 units SC ACHS [facility] PRN Reason: Protocol Last Admin: 04/01/17 06:42 Dose: Not Given Metformin HCl (Glucophage) 1,000 mg PO BID [facility] Last Admin: 04/01/17 09:05 Dose: Not Given Pantoprazole Sodium (Protonix Ec Tab) 40 mg PO DAILY [facility] Last Admin: 04/01/17 09:04 Dose: Not Given - Labs Labs: 04/01/17 06:30 04/01/17 06:30 PT 14.6 Seconds (9.8-13.1) H 04/01/17 06:30 INR 1.3 (0.9-1.2) H 04/01/17 06:30 APTT 42.7 Seconds (25.6-37.1) H 04/01/17 06:30 - Constitutional Appears: No Acute Distress - Head Exam Head Exam: NORMAL INSPECTION - Eye Exam Eye Exam: PERRL - ENT Exam ENT Exam: Normal Oropharynx - Neck Exam Neck Exam: Normal Inspection - Respiratory Exam Respiratory Exam: Decreased Breath Sounds, Rhonchi (R lung) - Cardiovascular Exam Cardiovascular Exam: REGULAR RHYTHM - GI/Abdominal Exam GI & Abdominal Exam: Soft, Normal Bowel Sounds - Extremities Exam Extremities Exam: Normal Inspection - Back Exam Back Exam: NORMAL INSPECTION - Neurological Exam Neurological Exam: Alert, CN II-XII Intact, Oriented x3. absent: Motor Sensory Deficit - Psychiatric Exam Psychiatric exam: Normal Mood - Skin Skin Exam: Warm Assessment and Plan (1) Cavitating mass of lung Status: Acute (2) Cavitary lung disease Status: Acute (3) PNA (pneumonia) Status: Acute (4) Hiccups Status: Acute (5) PPD positive Status: Acute - Assessment and Plan (Free Text) Plan: Continue Levaquin, Zosyn , f/u Bronchoscopy Bx, f/u Bronchial washing cytology C -S. Bronchoscopy : Preop Dx: Cavitary masses R lung After topical anesthesia bronchoscope was advanced to R nasal cavity ,then further advanced in the nasopharynx , the epiglotis was in the midline and mobile , the vocal cords were mobile with no pathology, the subglotic area was normal. then advanced into the trachea , the mucosae with mild hyperemia , no endotracheal lesions or extrinsic compresions, the alf was slightly blunted , then the bronchoscope was advanced into the The L main stem bronchi , LUB and LLB, the mucosae in all segments with mild hyperemia no endobronchial lesions or extrinsic compresions . The bronchoscope was withdraw and advanced into the R main stem bronchi , then into the RUL , withdraw and trough the truncus intermidious into the RML, then advanced into the RML, the mucosae in all segments with mild hyperemia, no endobronchial lesions , at this tiime under fluoroscopy guide transbronchial Bx's were taken into the anterior sgment RUL and there after superior segment of RLL along with washings , then bronchoscope was withdrawn. Post Op Dx : Same as Pre Op Complications none As the end of the procedure Patient was in stable condition and Bx's , washings were forwarded to Lab and Pathology
[2017-04-01] MEDS: Enoxaparin 40 mg Syringe SC SCH (17:21)
[2017-04-02] MEDS: Piperacillin/Tazobact 3.375 GM in Sodium Chloride 0.9% 100 ML IVPB SCH ×6 (00:10→23:13)
[2017-04-02] MEDS: Dextrose 5%/0.9% NS 1,000 ML IV SCH ×3 (02:00→19:46)
[2017-04-02] MEDS: Insulin Regular 100 units/ml SC SCH ×4 (06:49→21:28)
[2017-04-02] MEDS: levoFLOXacin 500 mg in D5W 500 MG/100 ML BAG IVPB SCH (08:33)
[2017-04-02] MEDS: Pantoprazole 40 mg EC Tab PO SCH (08:34)
--- NOTE | 2017-04-02 13:57 | CP.PCM.PN ---
Subjective - Date & Time of Evaluation Date of Evaluation: 04/02/17 Time of Evaluation: 12:30 - Subjective Subjective: Patient seen and examined bedside. feeling well. Denies any dyspnea, chest pain. Still with hiccups on and off. Hemodynamically stable, afebrile. No acute issues overnight on respiratory isolation. Objective - Vital Signs/Intake and Output Vital Signs (last 24 hours): Temp Pulse Resp BP Pulse Ox 98.4 F 97 H 19 156/88 H 100 04/02/17 08:10 04/02/17 08:10 04/02/17 08:10 04/02/17 08:10 04/02/17 08:10 - Medications Medications: Current Medications Ferrous Sulfate (Feosol) 325 mg PO BID [facility] Last Admin: 04/02/17 08:34 Dose: 325 mg Levofloxacin/Dextrose (Levaquin 500mg) 500 mg in 100 mls @ 100 mls/hr IVPB DAILY [facility] Last Admin: 04/02/17 08:33 Dose: 100 mls/hr Piperacillin Sod/Tazobactam (Sod 3.375 gm/ Sodium Chloride) 100 mls @ 100 mls/ hr IVPB 0000,0600,1200,1800 [facility] Last Admin: 04/02/17 11:42 Dose: 100 mls/hr Lactated Ringer's (Lactated Ringer's) 1,000 mls @ 75 mls/hr IV .[id number] [facility] Last Admin: 04/02/17 01:42 Dose: Not Given Insulin Detemir (Levemir) 20 units SC [facility] Last Admin: 03/30/17 22:11 Dose: Not Given Insulin Human Regular (Humulin R) 0 units SC [facility] PRN Reason: Protocol Last Admin: 04/02/17 11:43 Dose: 2 units Metformin HCl (Glucophage) 1,000 mg PO BID [facility] Last Admin: 04/02/17 08:34 Dose: 1,000 mg Pantoprazole Sodium (Protonix Ec Tab) 40 mg PO DAILY [facility] Last Admin: 04/02/17 08:34 Dose: 40 mg - Labs Labs: 04/01/17 06:30 04/01/17 06:30 PT 14.6 Seconds (9.8-13.1) H 04/01/17 06:30 INR 1.3 (0.9-1.2) H 04/01/17 06:30 APTT 42.7 Seconds (25.6-37.1) H 04/01/17 06:30 - Constitutional Appears: Non-toxic, No Acute Distress, Cachectic - Head Exam Head Exam: ATRAUMATIC, NORMAL INSPECTION, NORMOCEPHALIC - Eye Exam Eye Exam: EOMI, Normal appearance, PERRL Pupil Exam: NORMAL ACCOMODATION - ENT Exam ENT Exam: Mucous Membranes Moist, Normal Exam - Neck Exam Neck Exam: Full ROM, Normal Inspection - Respiratory Exam Respiratory Exam: Clear to Ausculation Bilateral, Rales (bibasilar), NORMAL BREATHING PATTERN. absent: Rhonchi, Wheezes - Cardiovascular Exam Cardiovascular Exam: REGULAR RHYTHM, RRR, +S1, +S2. absent: JVD - GI/Abdominal Exam GI & Abdominal Exam: Soft, Normal Bowel Sounds. absent: Distended, Guarding, Tenderness, Rebound - Rectal Exam Rectal Exam: Deferred - Extremities Exam Extremities Exam: Full ROM, Normal Capillary Refill, Normal Inspection - Back Exam Back Exam: NORMAL INSPECTION - Neurological Exam Neurological Exam: Alert, Awake, CN II-XII Intact, Oriented x3 - Psychiatric Exam Psychiatric exam: Normal Affect, Normal Mood - Skin Skin Exam: Dry, Intact, Normal Color, Warm Assessment and Plan - Assessment and Plan (Free Text) Assessment: 61 yo male with history of DM2 came in because of recurrent hiccups relieved with self induced vomiting. Loss 25 lbs in 3 months. Admitted at [facility] because of pneumonia Patient found to have mass in lung, with positive PPD. Imaging + for multifocal infiltrates RUL, RML, RLL with cavitations. Concern for TB. Bronch 04/01/[address] Cano appreciated and followed. 1. Multifocal infiltrates - probably HCAP ID and pulmonary on consult continue Zosyn and Levaquine IV s/p bronchoscopy Follow up AFB-s and cytology report 2. Mass of lung r/o TB , r/o CA PPD ositive 15 mm continue isolation untill sputum culture results come back negative for AFBx3 Continue Zosyn and Levaquine Pulmonary consult with Dr Brand ID consult with Dr Cano F/o Bronchoscopy results 3. Intractable hiccups (on and off 0 Chlorpromazine prn 4.DM2 (diabetes mellitus, type 2) diabetic diet. accuchek ACHS with low Lispro coverage. Metformin 1000mg PO BID. Levemir 20 units SC HS. HBA1C: 7.9 5. Hyponatremia improving with IV hydration with NSS serum Na: 130 repeat BMP in am 6 Hyperkalemia resolved 6. Cachetic with weight loss r/o malignancy 7. Mild anemia most likely anemia of chronic disease 8. DVT prophylaxis Lovenox 40mg SC daily 9.Hepatitis B positive Hep Bs Ag positive Further GI eval
--- NOTE | 2017-04-02 17:14 | CP.PCM.PN ---
Subjective - Date & Time of Evaluation Date of Evaluation: 04/02/17 Time of Evaluation: 14:00 - Subjective Subjective: F/U Cavitating Lung Disease, RUL Mass. Pt with no c/o, no SOB, no HERMAN, no chest congestion. Objective - Vital Signs/Intake and Output Vital Signs (last 24 hours): Temp Pulse Resp BP Pulse Ox 97.8 F 79 18 166/94 H 100 04/02/17 16:23 04/02/17 16:23 04/02/17 16:23 04/02/17 16:23 04/02/17 16:23 - Medications Medications: Current Medications Chlorpromazine (Thorazine) 25 mg IM Q6 PRN PRN Reason: Hiccups Last Admin: 04/02/17 16:18 Dose: 25 mg Ferrous Sulfate (Feosol) 325 mg PO BID [facility] Last Admin: 04/02/17 16:11 Dose: 325 mg Levofloxacin/Dextrose (Levaquin 500mg) 500 mg in 100 mls @ 100 mls/hr IVPB DAILY [facility] Last Admin: 04/02/17 08:33 Dose: 100 mls/hr Piperacillin Sod/Tazobactam (Sod 3.375 gm/ Sodium Chloride) 100 mls @ 100 mls/ hr IVPB 0000,0600,1200,1800 [facility] Last Admin: 04/02/17 17:04 Dose: 100 mls/hr Insulin Detemir (Levemir) 20 units SC HS [facility] Last Admin: 03/30/17 22:11 Dose: Not Given Insulin Human Regular (Humulin R) 0 units SC ACHS [facility] PRN Reason: Protocol Last Admin: 04/02/17 17:04 Dose: 1 units Metformin HCl (Glucophage) 1,000 mg PO BID [facility] Last Admin: 04/02/17 16:11 Dose: 1,000 mg Pantoprazole Sodium (Protonix Ec Tab) 40 mg PO DAILY [facility] Last Admin: 04/02/17 08:34 Dose: 40 mg - Labs Labs: 04/01/17 06:30 04/01/17 06:30 PT 14.6 Seconds (9.8-13.1) H 04/01/17 06:30 INR 1.3 (0.9-1.2) H 04/01/17 06:30 APTT 42.7 Seconds (25.6-37.1) H 04/01/17 06:30 - Constitutional Appears: No Acute Distress - Head Exam Head Exam: NORMAL INSPECTION - Eye Exam Eye Exam: PERRL - ENT Exam ENT Exam: Normal Oropharynx - Neck Exam Neck Exam: Normal Inspection - Respiratory Exam Respiratory Exam: Decreased Breath Sounds - Cardiovascular Exam Cardiovascular Exam: REGULAR RHYTHM - GI/Abdominal Exam GI & Abdominal Exam: Soft, Normal Bowel Sounds - Extremities Exam Extremities Exam: Normal Inspection - Back Exam Back Exam: NORMAL INSPECTION - Neurological Exam Neurological Exam: Alert, CN II-XII Intact, Oriented x3. absent: Motor Sensory Deficit - Psychiatric Exam Psychiatric exam: Normal Mood - Skin Skin Exam: Warm Assessment and Plan (1) Cavitating mass of lung Status: Acute (2) Cavitary lung disease Status: Acute (3) PNA (pneumonia) Status: Acute (4) Hiccups Status: Acute (5) PPD positive Status: Acute - Assessment and Plan (Free Text) Plan: S/P Bronchoscopy yesterday, F/U Bronchial Bx and washing.
[2017-04-03] MEDS: Piperacillin/Tazobact 3.375 GM in Sodium Chloride 0.9% 100 ML IVPB SCH ×3 (05:14→18:56)
[2017-04-03 07:01] LABS: HEMOGLOBIN 10.3 g/dL (12.0-18.0); MEAN CELL VOLUME 94.8 fl (80.0-94.0); MEAN CORPUSCULAR HEMOGLOBIN 32.4 pg (27.0-31.0); MEAN CORPUSCULAR HGB CONC 34.2 g/dL (33.0-37.0); RBC 3.17 Mil/uL (4.40-5.90); RED CELL DISTRIBUTION WIDTH 14.9 % (11.5-14.5); WHITE BLOOD COUNT 3.2 K/uL (4.8-10.8)
[2017-04-03 07:11] LABS: ALB/GLOB RATIO 0.5 (1.0-2.1); ALBUMIN 2.4 g/dL (3.5-5.0); ALT/SGPT 59 U/L (21-72); AST/SGOT 80 U/L (17-59); BLOOD UREA NITROGEN 8 mg/dl (9-20); CALCIUM 8.2 mg/dL (8.4-10.2); GFR AFRICAN-AMERICAN > 60; GFR NON-AFRICAN AMERICAN > 60
--- NOTE | 2017-04-03 07:58 | CP.PCM.PN ---
Subjective - Date & Time of Evaluation Date of Evaluation: 04/03/17 Time of Evaluation: 13:00 - Subjective Subjective: Patient seen and examined bedside. Feeling better. denies any cough , SOB, fever , chills, abdominal pain , nausea or vomiting. Complains of multiple episodes of diarrhea Hemodynamically stable, afebrile Objective - Vital Signs/Intake and Output Vital Signs (last 24 hours): Temp Pulse Resp BP Pulse Ox 97.6 F 103 H 20 155/89 H 100 04/03/17 07:23 04/03/17 07:23 04/03/17 07:23 04/03/17 07:23 04/03/17 07:23 - Medications Medications: Current Medications Chlorpromazine (Thorazine) 25 mg IM Q6 PRN PRN Reason: Hiccups Last Admin: 04/02/17 16:18 Dose: 25 mg Ferrous Sulfate (Feosol) 325 mg PO BID [facility] Last Admin: 04/02/17 16:11 Dose: 325 mg Levofloxacin/Dextrose (Levaquin 500mg) 500 mg in 100 mls @ 100 mls/hr IVPB DAILY [facility] Last Admin: 04/02/17 08:33 Dose: 100 mls/hr Piperacillin Sod/Tazobactam (Sod 3.375 gm/ Sodium Chloride) 100 mls @ 100 mls/ hr IVPB 0000,0600,1200,1800 [facility] Last Admin: 04/03/17 05:14 Dose: 100 mls/hr Insulin Detemir (Levemir) 20 units SC [facility] Last Admin: 03/30/17 22:11 Dose: Not Given Insulin Human Regular (Humulin R) 0 units SC [facility] PRN Reason: Protocol Last Admin: 04/02/17 21:28 Dose: Not Given Metformin HCl (Glucophage) 1,000 mg PO BID [facility] Last Admin: 04/02/17 16:11 Dose: 1,000 mg Pantoprazole Sodium (Protonix Ec Tab) 40 mg PO DAILY [facility] Last Admin: 04/02/17 08:34 Dose: 40 mg - Labs Labs: 04/03/17 06:00 04/03/17 06:00 PT 14.6 Seconds (9.8-13.1) H 04/01/17 06:30 INR 1.3 (0.9-1.2) H 04/01/17 06:30 APTT 42.7 Seconds (25.6-37.1) H 04/01/17 06:30 - Constitutional Appears: Non-toxic, No Acute Distress, Cachectic - Head Exam Head Exam: ATRAUMATIC, NORMAL INSPECTION, NORMOCEPHALIC - Eye Exam Eye Exam: EOMI, Normal appearance, PERRL Pupil Exam: NORMAL ACCOMODATION - ENT Exam ENT Exam: Mucous Membranes Moist, Normal Exam - Neck Exam Neck Exam: Full ROM, Normal Inspection - Respiratory Exam Respiratory Exam: Clear to Ausculation Bilateral, NORMAL BREATHING PATTERN. absent: Rhonchi, Wheezes - Cardiovascular Exam Cardiovascular Exam: REGULAR RHYTHM, RRR, +S1, +S2. absent: JVD - GI/Abdominal Exam GI & Abdominal Exam: Soft, Normal Bowel Sounds. absent: Distended, Guarding, Tenderness, Rebound - Rectal Exam Rectal Exam: Deferred - Extremities Exam Extremities Exam: Full ROM, Normal Capillary Refill, Normal Inspection. absent : Calf Tenderness, Pedal Edema - Back Exam Back Exam: NORMAL INSPECTION - Neurological Exam Neurological Exam: Alert, Awake, CN II-XII Intact, Oriented x3 - Psychiatric Exam Psychiatric exam: Normal Affect, Normal Mood - Skin Skin Exam: Dry, Intact, Normal Color, Warm Assessment and Plan - Assessment and Plan (Free Text) Assessment: 61 yo male with history of DM2 came in because of recurrent hiccups relieved with self induced vomiting. Loss 25 lbs in 3 months. Admitted at [facility] because of pneumonia Patient found to have mass in lung, with positive PPD. Imaging + for multifocal infiltrates RUL, RML, RLL with cavitations. Concern for TB. Bronch 04/01/[address] Cano appreciated and followed. 1. Multifocal infiltrates - probably HCAP ID and pulmonary on consult continue Zosyn and Levaquine IV s/p bronchoscopy Follow up AFB-s and cytology report 1 AFB negative so far. Waiting on results of 2 other samples 2. Mass of lung r/o TB , r/o CA PPD positive 15 mm continue isolation untill sputum culture results come back negative for AFBx3 Continue Zosyn and Levaquine Pulmonary consult with Dr Brand ID consult with Dr Cano F/u Bronchoscopy results 3. Intractable hiccups (on and off ) Chlorpromazine prn 4.DM2 (diabetes mellitus, type 2) diabetic diet. accuchek ACHS with low Lispro coverage. Metformin 1000mg PO BID. Levemir 20 units SC HS. HBA1C: 7.9 5. Hyponatremia improving with IV hydration with NSS 6 Hyperkalemia resolved 6. Cachetic with weight loss r/o malignancy 7. Mild anemia most likely anemia of chronic disease 8. DVT prophylaxis Lovenox 40mg SC daily 9.Hepatitis B positive Hep Bs Ag positive Further GI eval as out patient 10. Diarrhea rule out C.diff
[2017-04-03] MEDS: Insulin Regular 100 units/ml SC SCH ×5 (08:24→22:18)
[2017-04-03] MEDS: Pantoprazole 40 mg EC Tab PO SCH (08:25)
[2017-04-03] MEDS: levoFLOXacin 500 mg in D5W 500 MG/100 ML BAG IVPB SCH (08:25)
--- NOTE | 2017-04-03 13:45 | CP.PCM.PN ---
Subjective - Date & Time of Evaluation Date of Evaluation: 04/03/17 Time of Evaluation: 08:00 - Subjective Subjective: afeb on zosyn and levaquin afb and bx pending Objective - Vital Signs/Intake and Output Vital Signs (last 24 hours): Temp Pulse Resp BP Pulse Ox 97.6 F 103 H 20 155/89 H 100 04/03/17 07:23 04/03/17 07:23 04/03/17 07:23 04/03/17 07:23 04/03/17 07:23 - Medications Medications: Current Medications Chlorpromazine (Thorazine) 25 mg IM Q6 PRN PRN Reason: Hiccups Last Admin: 04/02/17 16:18 Dose: 25 mg Ferrous Sulfate (Feosol) 325 mg PO BID [facility] Last Admin: 04/03/17 08:23 Dose: 325 mg Levofloxacin/Dextrose (Levaquin 500mg) 500 mg in 100 mls @ 100 mls/hr IVPB DAILY [facility] Last Admin: 04/03/17 08:25 Dose: 100 mls/hr Piperacillin Sod/Tazobactam (Sod 3.375 gm/ Sodium Chloride) 100 mls @ 100 mls/ hr IVPB 0000,0600,1200,1800 [facility] Last Admin: 04/03/17 12:36 Dose: 100 mls/hr Insulin Detemir (Levemir) 20 units SC HS [facility] Last Admin: 03/30/17 22:11 Dose: Not Given Insulin Human Regular (Humulin R) 0 units SC ACHS [facility] PRN Reason: Protocol Last Admin: 04/03/17 12:38 Dose: 3 units Metformin HCl (Glucophage) 1,000 mg PO BID [facility] Last Admin: 04/03/17 08:23 Dose: 1,000 mg Pantoprazole Sodium (Protonix Ec Tab) 40 mg PO DAILY [facility] Last Admin: 04/03/17 08:25 Dose: 40 mg - Labs Labs: 04/03/17 06:00 04/03/17 06:00 PT 14.6 Seconds (9.8-13.1) H 04/01/17 06:30 INR 1.3 (0.9-1.2) H 04/01/17 06:30 APTT 42.7 Seconds (25.6-37.1) H 04/01/17 06:30 - Constitutional Appears: Non-toxic, Chronically Ill - Head Exam Head Exam: NORMOCEPHALIC - Eye Exam Eye Exam: PERRL - ENT Exam ENT Exam: Mucous Membranes Dry - Neck Exam Neck Exam: absent: Lymphadenopathy - Respiratory Exam Respiratory Exam: Decreased Breath Sounds, Rhonchi - Cardiovascular Exam Cardiovascular Exam: REGULAR RHYTHM - GI/Abdominal Exam GI & Abdominal Exam: Distended, Soft Assessment and Plan (1) DM2 (diabetes mellitus, type 2) Status: Acute (2) Intractable hiccups Status: Deleted (3) Mass of lung Status: Acute
--- NOTE | 2017-04-03 16:50 | CP.PCM.PN ---
Subjective - Date & Time of Evaluation Date of Evaluation: 04/03/17 Time of Evaluation: 09:40 - Subjective Subjective: F/U Cavitating Mass of lung Pt with no A/D, no SOB, no chest congestion. Objective - Vital Signs/Intake and Output Vital Signs (last 24 hours): Temp Pulse Resp BP Pulse Ox 100.1 F H 125 H 20 108/70 99 04/03/17 16:49 04/03/17 16:22 04/03/17 16:22 04/03/17 16:22 04/03/17 16:22 - Medications Medications: Current Medications Acetaminophen (Tylenol 325mg Tab) 650 mg PO Q6 PRN PRN Reason: Fever >100.4 F Last Admin: 04/03/17 16:49 Dose: 650 mg Chlorpromazine (Thorazine) 25 mg IM Q6 PRN PRN Reason: Hiccups Last Admin: 04/02/17 16:18 Dose: 25 mg Ferrous Sulfate (Feosol) 325 mg PO BID [facility] Last Admin: 04/03/17 16:43 Dose: 325 mg Levofloxacin/Dextrose (Levaquin 500mg) 500 mg in 100 mls @ 100 mls/hr IVPB DAILY [facility] Last Admin: 04/03/17 08:25 Dose: 100 mls/hr Piperacillin Sod/Tazobactam (Sod 3.375 gm/ Sodium Chloride) 100 mls @ 100 mls/ hr IVPB 0000,0600,1200,1800 [facility] Last Admin: 04/03/17 12:36 Dose: 100 mls/hr Insulin Detemir (Levemir) 20 units SC HS [facility] Last Admin: 03/30/17 22:11 Dose: Not Given Insulin Human Regular (Humulin R) 0 units SC ACHS [facility] PRN Reason: Protocol Last Admin: 04/03/17 16:48 Dose: 1 units Metformin HCl (Glucophage) 1,000 mg PO BID [facility] Last Admin: 04/03/17 16:43 Dose: 1,000 mg Metoprolol Tartrate (Lopressor) 6.25 mg PO Q12 [facility] Pantoprazole Sodium (Protonix Ec Tab) 40 mg PO DAILY [facility] Last Admin: 04/03/17 08:25 Dose: 40 mg - Labs Labs: 04/03/17 06:00 04/03/17 06:00 PT 14.6 Seconds (9.8-13.1) H 04/01/17 06:30 INR 1.3 (0.9-1.2) H 04/01/17 06:30 APTT 42.7 Seconds (25.6-37.1) H 04/01/17 06:30 - Constitutional Appears: No Acute Distress - Head Exam Head Exam: NORMAL INSPECTION - Eye Exam Eye Exam: PERRL - ENT Exam ENT Exam: Normal Oropharynx - Neck Exam Neck Exam: Normal Inspection - Respiratory Exam Respiratory Exam: Decreased Breath Sounds - Cardiovascular Exam Cardiovascular Exam: REGULAR RHYTHM - GI/Abdominal Exam GI & Abdominal Exam: Soft, Normal Bowel Sounds - Extremities Exam Extremities Exam: Normal Inspection - Back Exam Back Exam: NORMAL INSPECTION - Neurological Exam Neurological Exam: Alert, CN II-XII Intact, Oriented x3. absent: Motor Sensory Deficit - Psychiatric Exam Psychiatric exam: Normal Mood - Skin Skin Exam: Warm Assessment and Plan (1) Cavitating mass of lung Status: Acute (2) Cavitary lung disease Status: Acute (3) PNA (pneumonia) Status: Acute (4) Hiccups Status: Acute (5) PPD positive Status: Acute - Assessment and Plan (Free Text) Plan: AFB x3 negative, F/U Bronchial Bx and washing, continue current abx coverage and rest of Tx.
[2017-04-04] MEDS: Piperacillin/Tazobact 3.375 GM in Sodium Chloride 0.9% 100 ML IVPB SCH ×5 (06:30→23:42)
[2017-04-04 06:43] LABS: BLOOD UREA NITROGEN 7 mg/dl (9-20); CALCIUM 8.5 mg/dL (8.4-10.2); GFR AFRICAN-AMERICAN > 60; GFR NON-AFRICAN AMERICAN > 60
[2017-04-04 06:53] LABS: HEMOGLOBIN 10.9 g/dL (12.0-18.0); MEAN CELL VOLUME 95.1 fl (80.0-94.0); MEAN CORPUSCULAR HEMOGLOBIN 32.2 pg (27.0-31.0); MEAN CORPUSCULAR HGB CONC 33.8 g/dL (33.0-37.0); RBC 3.38 Mil/uL (4.40-5.90); RED CELL DISTRIBUTION WIDTH 14.8 % (11.5-14.5); WHITE BLOOD COUNT 4.9 K/uL (4.8-10.8)
[2017-04-04] MEDS: Insulin Regular 100 units/ml SC SCH ×3 (07:18→16:59)
[2017-04-04] MEDS: levoFLOXacin 500 mg in D5W 500 MG/100 ML BAG IVPB SCH (10:03)
[2017-04-04] MEDS: Pantoprazole 40 mg EC Tab PO SCH (10:03)
--- NOTE | 2017-04-04 12:10 | CP.PCM.PN ---
Subjective - Date & Time of Evaluation Date of Evaluation: 04/04/17 Time of Evaluation: 12:08 - Subjective Subjective: pt seen examined bedside, comfortable no complaints at this time no sob, cp. currently afebrile. tmax overnight 100.3 denies diarrhea VSS NAD Objective - Vital Signs/Intake and Output Vital Signs (last 24 hours): Temp Pulse Resp BP Pulse Ox 97.9 F 86 20 150/84 100 04/04/17 07:41 04/04/17 10:00 04/04/17 07:41 04/04/17 10:00 04/04/17 07:41 - Medications Medications: Current Medications Acetaminophen (Tylenol 325mg Tab) 650 mg PO Q6 PRN PRN Reason: Fever >100.4 F Last Admin: 04/03/17 16:49 Dose: 650 mg Chlorpromazine (Thorazine) 25 mg IM Q6 PRN PRN Reason: Hiccups Last Admin: 04/02/17 16:18 Dose: 25 mg Ferrous Sulfate (Feosol) 325 mg PO BID [facility] Last Admin: 04/04/17 10:10 Dose: 325 mg Levofloxacin/Dextrose (Levaquin 500mg) 500 mg in 100 mls @ 100 mls/hr IVPB DAILY [facility] Last Admin: 04/04/17 10:03 Dose: 100 mls/hr Piperacillin Sod/Tazobactam (Sod 3.375 gm/ Sodium Chloride) 100 mls @ 100 mls/ hr IVPB 0000,0600,1200,1800 [facility] Last Admin: 04/04/17 06:30 Dose: 100 mls/hr Insulin Detemir (Levemir) 20 units SC HS [facility] Last Admin: 03/30/17 22:11 Dose: Not Given Insulin Human Regular (Humulin R) 0 units SC ACHS [facility] PRN Reason: Protocol Last Admin: 04/04/17 07:18 Dose: 1 units Metformin HCl (Glucophage) 1,000 mg PO BID [facility] Last Admin: 04/04/17 10:01 Dose: 1,000 mg Metoprolol Tartrate (Lopressor) 6.25 mg PO Q12 [facility] Last Admin: 04/04/17 10:00 Dose: 6.25 mg Pantoprazole Sodium (Protonix Ec Tab) 40 mg PO DAILY [facility] Last Admin: 04/04/17 10:03 Dose: 40 mg - Labs Labs: 04/04/17 05:35 04/04/17 05:35 PT 14.6 Seconds (9.8-13.1) H 04/01/17 06:30 INR 1.3 (0.9-1.2) H 04/01/17 06:30 APTT 42.7 Seconds (25.6-37.1) H 04/01/17 06:30 - Constitutional Appears: Non-toxic, No Acute Distress - Head Exam Head Exam: ATRAUMATIC, NORMOCEPHALIC - Eye Exam Eye Exam: EOMI, Normal appearance, PERRL Pupil Exam: NORMAL ACCOMODATION - ENT Exam ENT Exam: Mucous Membranes Moist, Normal Oropharynx - Neck Exam Neck Exam: Full ROM, Normal Inspection - Respiratory Exam Respiratory Exam: Clear to Ausculation Bilateral, NORMAL BREATHING PATTERN - Cardiovascular Exam Cardiovascular Exam: RRR, +S1, +S2 - GI/Abdominal Exam GI & Abdominal Exam: Soft, Normal Bowel Sounds. absent: Tenderness, Organomegaly - Extremities Exam Extremities Exam: Normal Capillary Refill. absent: Calf Tenderness - Back Exam Back Exam: absent: CVA tenderness (L), CVA tenderness (R) - Neurological Exam Neurological Exam: Alert, Awake - Psychiatric Exam Psychiatric exam: Normal Affect, Normal Mood - Skin Skin Exam: Dry, Warm Assessment and Plan - Assessment and Plan (Free Text) Plan: Start lopressor 6.25 mg po BID for tachycardia and BP control 61 yo male with history of DM2 came in because of recurrent hiccups relieved with self induced vomiting. Loss 25 lbs in 3 months. Admitted at [facility] because of pneumonia Patient found to have mass in lung, with positive PPD. Imaging + for multifocal infiltrates RUL, RML, RLL with cavitations. Concern for TB. Bronch 04/01/[address] Cano appreciated and followed. 04/04/17 Tmax overnight 1003. awaiting cdiff results, otherwise continue to await sputum 1. Multifocal infiltrates - probably HCAP ID and pulmonary on consult continue Zosyn and Levaquine IV s/p bronchoscopy Follow up AFB-s and cytology report 1 AFB negative so far. Waiting on results of 2 other samples 2. Mass of lung r/o TB , r/o CA PPD positive 15 mm continue isolation untill sputum culture results come back negative for AFBx3 Continue Zosyn and Levaquine Pulmonary consult with Dr Brand ID consult with Dr Cano F/u Bronchoscopy results 3. Intractable hiccups (on and off ) Chlorpromazine prn 4.DM2 (diabetes mellitus, type 2) diabetic diet. accuchek ACHS with low Lispro coverage. Metformin 1000mg PO BID. Levemir 20 units SC HS. HBA1C: 7.9 5. Hyponatremia improving with IV hydration with NSS 6 Hyperkalemia resolved 6. Cachetic with weight loss r/o malignancy 7. Mild anemia most likely anemia of chronic disease 8. DVT prophylaxis Lovenox 40mg SC daily 9.Hepatitis B positive Hep Bs Ag positive Further GI eval as out patient 10. Diarrhea rule out C.diff patient had tmax 100.3 overnight pending cdiff 11. Hypertension/Tachycardia Tachycardia could have been secondary to fever will monitor Started lopressor 6.25 mg po BID for tachycardia and BP control yesterday
--- NOTE | 2017-04-04 17:44 | CP.PCM.PN ---
Subjective - Date & Time of Evaluation Date of Evaluation: 04/04/17 Time of Evaluation: 12:20 - Subjective Subjective: F/U Cavitation Mass of Lung. No A/D, no cough, no SOB, no HERMAN, no chest congestion. Objective - Vital Signs/Intake and Output Vital Signs (last 24 hours): Temp Pulse Resp BP Pulse Ox 97.3 F L 95 H 19 143/86 99 04/04/17 15:56 04/04/17 15:56 04/04/17 15:56 04/04/17 15:56 04/04/17 15:56 - Medications Medications: Current Medications Acetaminophen (Tylenol 325mg Tab) 650 mg PO Q6 PRN PRN Reason: Fever >100.4 F Last Admin: 04/03/17 16:49 Dose: 650 mg Chlorpromazine (Thorazine) 25 mg IM Q6 PRN PRN Reason: Hiccups Last Admin: 04/02/17 16:18 Dose: 25 mg Ferrous Sulfate (Feosol) 325 mg PO BID [facility] Last Admin: 04/04/17 17:08 Dose: 325 mg Levofloxacin/Dextrose (Levaquin 500mg) 500 mg in 100 mls @ 100 mls/hr IVPB DAILY [facility] Last Admin: 04/04/17 10:03 Dose: 100 mls/hr Piperacillin Sod/Tazobactam (Sod 3.375 gm/ Sodium Chloride) 100 mls @ 100 mls/ hr IVPB 0000,0600,1200,1800 [facility] Last Admin: 04/04/17 17:00 Dose: 100 mls/hr Insulin Detemir (Levemir) 20 units SC HS [facility] Last Admin: 03/30/17 22:11 Dose: Not Given Insulin Human Regular (Humulin R) 0 units SC ACHS [facility] PRN Reason: Protocol Last Admin: 04/04/17 16:59 Dose: 3 units Metformin HCl (Glucophage) 1,000 mg PO BID [facility] Last Admin: 04/04/17 17:00 Dose: 1,000 mg Metoprolol Tartrate (Lopressor) 6.25 mg PO Q12 [facility] Last Admin: 04/04/17 10:00 Dose: 6.25 mg Pantoprazole Sodium (Protonix Ec Tab) 40 mg PO DAILY [facility] Last Admin: 04/04/17 10:03 Dose: 40 mg - Labs Labs: 04/04/17 05:35 04/04/17 05:35 PT 14.6 Seconds (9.8-13.1) H 04/01/17 06:30 INR 1.3 (0.9-1.2) H 04/01/17 06:30 APTT 42.7 Seconds (25.6-37.1) H 04/01/17 06:30 - Constitutional Appears: No Acute Distress - Head Exam Head Exam: NORMAL INSPECTION - Eye Exam Eye Exam: PERRL - ENT Exam ENT Exam: Normal Oropharynx - Neck Exam Neck Exam: Normal Inspection - Respiratory Exam Respiratory Exam: Decreased Breath Sounds, Rhonchi (few scattered) - Cardiovascular Exam Cardiovascular Exam: REGULAR RHYTHM - Extremities Exam Extremities Exam: Normal Inspection - Back Exam Back Exam: NORMAL INSPECTION - Neurological Exam Neurological Exam: Alert, CN II-XII Intact, Oriented x3. absent: Motor Sensory Deficit - Psychiatric Exam Psychiatric exam: Normal Mood - Skin Skin Exam: Warm Assessment and Plan (1) Cavitating mass of lung Status: Acute (2) Cavitary lung disease Status: Acute (3) PNA (pneumonia) Status: Acute (4) Hiccups Status: Acute (5) PPD positive Status: Acute - Assessment and Plan (Free Text) Plan: Lung Bx negative x AFB and malignancy, Bronchial washing negative for malignancy , 3 sputum AFB negative ,continue Levaquin, Zosyn and rest of Tx.
[2017-04-05 00:32] VITALS: O2SAT 100
[2017-04-05] MEDS: Piperacillin/Tazobact 3.375 GM in Sodium Chloride 0.9% 100 ML IVPB SCH (06:08)
[2017-04-05] MEDS: Insulin Regular 100 units/ml SC SCH ×2 (06:10→07:39)
[2017-04-05 08:45] VITALS: BP 151/82; PULSE 101; RESP 20; TEMP 98.2
[2017-04-05] MEDS: levoFLOXacin 500 mg in D5W 500 MG/100 ML BAG IVPB SCH (09:00)
[2017-04-05] MEDS: Pantoprazole 40 mg EC Tab PO SCH (09:02)
--- NOTE | 2017-04-05 10:49 | CP.PCM.DIS ---
Provider - Provider Date of Admission: 03/28/17 18:06 Attending physician: Oscar Almonte MD Time Spent in preparation of Discharge (in minutes): 30 Diagnosis - Discharge Diagnosis (1) Cavitary lung disease Status: Acute Priority: High (2) DM2 (diabetes mellitus, type 2) Status: Acute (3) Hiccups Status: Acute Priority: High (4) Mass of lung Status: Acute Hospital Course - Lab Results Lab Results: Micro Results 04/03/17 07:51 Other: Please Indicate Mycobacterial Culture - Preliminary 04/01/17 14:00 Other: Please Indicate Mycobacterial Culture - Preliminary 03/28/17 18:32 Blood Blood Culture - Final NO GROWTH AFTER 5 DAYS 03/28/17 18:32 Blood Gram Stain - Final TEST NOT PERFORMED 04/01/17 14:00 Other: Please Indicate Mycobacterial Culture - Preliminary 03/31/17 16:27 Sputum Gram Stain - Final 03/31/17 16:27 Sputum Sputum Culture - Final Yeast Species Most Recent Lab Values WBC 4.9 K/uL (4.8-10.8) D 04/04/17 05:35 RBC 3.38 Mil/uL (4.40-5.90) L 04/04/17 05:35 Hgb 10.9 g/dL (12.0-18.0) L 04/04/17 05:35 Hct 32.2 % (35.0-51.0) L 04/04/17 05:35 MCV 95.1 fl (80.0-94.0) H 04/04/17 05:35 MCH 32.2 pg (27.0-31.0) H 04/04/17 05:35 MCHC 33.8 g/dL (33.0-37.0) 04/04/17 05:35 RDW 14.8 % (11.5-14.5) H 04/04/17 05:35 Plt Count 143 K/uL (130-400) 04/04/17 05:35 MPV 7.2 fl (7.2-11.7) 04/01/17 06:30 Neut % (Auto) 73.0 % (50.0-75.0) 04/01/17 06:30 Lymph % (Auto) 15.7 % (20.0-40.0) L 04/01/17 06:30 [place] % (Auto) 9.1 % (0.0-10.0) 04/01/17 06:30 Eos % (Auto) 1.9 % (0.0-4.0) 04/01/17 06:30 Baso % (Auto) 0.3 % (0.0-2.0) 04/01/17 06:30 Neut # 2.9 K/uL (1.8-7.0) 04/01/17 06:30 Lymph # 0.6 K/uL (1.0-4.3) L 04/01/17 06:30 [place] # 0.4 K/uL (0.0-0.8) 04/01/17 06:30 Eos # 0.1 K/uL (0.0-0.7) 04/01/17 06:30 Baso # 0.0 K/uL (0.0-0.2) 04/01/17 06:30 PT 14.6 Seconds (9.8-13.1) H 04/01/17 06:30 INR 1.3 (0.9-1.2) H 04/01/17 06:30 APTT 42.7 Seconds (25.6-37.1) H 04/01/17 06:30 D-Dimer, Quantitative 2009 ng/mlDDU (0-230) H 03/28/17 14:55 Sodium 131 mmol/l (132-148) L 04/04/17 05:35 Potassium 5.5 MMOL/L (3.6-5.0) H 04/04/17 05:35 Chloride 101 mmol/L (98-107) 04/04/17 05:35 Carbon Dioxide 23 mmol/L (22-30) 04/04/17 05:35 Anion Gap 13 (10-20) 04/04/17 05:35 BUN 7 mg/dl (9-20) L 04/04/17 05:35 Creatinine 1.1 mg/dL (0.8-1.5) 04/04/17 05:35 Est GFR ( Amer) > 60 04/04/17 05:35 Est GFR (Non-Af Amer) > 60 04/04/17 05:35 POC Glucose (mg/dL) 141 mg/dL (65-110) H 04/05/17 06:31 Random Glucose 179 mg/dL (75-110) H 04/04/17 05:35 Hemoglobin A1c 7.9 % (4.2-6.5) H 03/29/17 05:20 Calcium 8.5 mg/dL (8.4-10.2) 04/04/17 05:35 Total Bilirubin 0.4 mg/dl (0.2-1.3) 04/03/17 06:00 AST 80 U/L (17-59) H 04/03/17 06:00 ALT 59 U/L (21-72) 04/03/17 06:00 Alkaline Phosphatase 148 U/L (38-126) H D 04/03/17 06:00 Troponin I < 0.0120 ng/mL (0.00-0.120) 03/28/17 12:20 Total Protein 7.1 G/DL (6.3-8.2) 04/03/17 06:00 Albumin 2.4 g/dL (3.5-5.0) L D 04/03/17 06:00 Globulin 4.7 gm/dL (2.2-3.9) H 04/03/17 06:00 Albumin/Globulin Ratio 0.5 (1.0-2.1) L 04/03/17 06:00 Lipase 31 U/L (23-300) 03/28/17 12:20 TSH 3rd Generation 0.74 mIU/ML (0.46-4.68) 03/29/17 05:20 Urine Color Straw (YELLOW) 03/28/17 11:50 Urine Clarity Clear (Clear) 03/28/17 11:50 Urine pH 7.0 (5.0-8.0) 03/28/17 11:50 Ur Specific [place] 1.005 (1.003-1.030) 03/28/17 11:50 Urine Protein Negative mg/dL (NEGATIVE) 03/28/17 11:50 Urine Glucose (UA) 50 mg/dL (Normal) 03/28/17 11:50 Urine Ketones Negative mg/dL (NEGATIVE) 03/28/17 11:50 Urine Blood Negative (NEGATIVE) 03/28/17 11:50 Urine Nitrate Negative (NEGATIVE) 03/28/17 11:50 Urine Bilirubin Negative (NEGATIVE) 03/28/17 11:50 Urine Urobilinogen 0.2-1.0 mg/dL (0.2-1.0) 03/28/17 11:50 Ur Leukocyte Esterase Neg Addis/uL (Negative) 03/28/17 11:50 Urine RBC (Auto) 1 /hpf (0-3) 03/28/17 11:50 Urine Microscopic WBC < 1 /hpf (0-5) 03/28/17 11:50 Urine Bacteria Rare (<OCC) 03/28/17 11:50 C. difficile Ag & Toxin Negative (NEGATIVE) 04/03/17 13:49 Hepatitis A IgM Ab Negative (NEGATIVE) 03/29/17 16:30 Hep Bs Antigen Positive (NEGATIVE) H 03/29/17 16:30 Hep Bs Ag Neutralizatn Confirmed positive H 03/30/17 09:00 Hep B Core IgM Ab Negative (NEGATIVE) 03/29/17 16:30 Hepatitis Be Antibody Reactive (Nonreactive) H 04/03/17 15:00 Hepatitis Be Antigen Nonreactive (Nonreactive) 04/03/17 15:00 Hepatitis C Antibody Negative (NEGATIVE) 03/29/17 16:30 HIV 1&2 Antibody Screen Negative (NEGATIVE) 03/29/17 16:30 - Hospital Course Hospital Course: 61 yo male with history of DM2 came in because of recurrent hiccups relieved with self induced vomiting. Loss 25 lbs in 3 months. Admitted at [facility] because of pneumonia Patient found to have mass in lung, with positive PPD. Imaging + for multifocal infiltrates RUL, RML, RLL with cavitations. Concern for TB. Bronch 04/01/[address] Cano appreciated and followed. AFB was negative three times, patient may be discharged on 5 more days of Levaquin, totalling 14 days. Diarrhea resolved. Afebrile. follow up with Dr. Brand as outpatient. 1. Multifocal infiltrates - probably HCAP ID and pulmonary on consult continue Zosyn and Levaquine IV -- CHANGE TO PO, DISCHARGE WITH 5 MORE DAYS s/p bronchoscopy Follow up AFB-s and cytology report 3 AFB NEGATIVE 2. Mass of lung r/o TB , r/o CA PPD positive 15 mm continue isolation untill sputum culture results come back negative for AFBx3 Continue Zosyn and Levaquine Pulmonary consult with Dr Brand ID consult with Dr Mangia F/u Bronchoscopy results 3. Intractable hiccups (on and off ) Chlorpromazine prn 4.DM2 (diabetes mellitus, type 2) diabetic diet. accuchek ACHS with low Lispro coverage. Metformin 1000mg PO BID. Levemir 20 units SC HS. HBA1C: 7.9 5. Hyponatremia improving with IV hydration with NSS 6 Hyperkalemia resolved 6. Cachetic with weight loss r/o malignancy 7. Mild anemia most likely anemia of chronic disease 8. DVT prophylaxis Lovenox 40mg SC daily 9.Hepatitis B positive Hep Bs Ag positive Further GI eval as out patient 10. Diarrhea rule out C.diff patient had tmax 100.3 overnight pending cdiff 11. Hypertension/Tachycardia Tachycardia could have been secondary to fever will monitor Started lopressor 6.25 mg po BID for tachy Discharge Exam - Head Exam Head Exam: NORMAL INSPECTION, NORMOCEPHALIC (`) - Eye Exam Eye Exam: EOMI, Normal appearance, PERRL Pupil Exam: NORMAL ACCOMODATION - ENT Exam ENT Exam: Mucous Membranes Moist, Normal Oropharynx - Respiratory Exam Respiratory Exam: Clear to PA & Lateral, NORMAL BREATHING PATTERN - Cardiovascular Exam Cardiovascular Exam: RRR, +S1, +S2 - GI/Abdominal Exam GI & Abdominal Exam: Normal Bowel Sounds, Soft, Unremarkable. absent: Mass, Organomegaly, Tenderness - Extremities Exam Extremities exam: normal capillary refill, pedal pulses present - Back Exam Back exam: absent: CVA tenderness (L), CVA tenderness (R) - Neurological Exam Neurological exam: Alert, Oriented x3 - Psychiatric Exam Psychiatric exam: Normal Affect, Normal Mood - Skin Skin Exam: Dry, Warm Discharge Plan - Discharge Medications Prescriptions: Ferrous Sulfate [Ferosul] 325 mg PO BID #60 Insulin Detemir [Levemir] 20 unit SC HS #1 Levofloxacin [Levaquin] 500 mg PO DAILY #5 tablet MetFORMIN [glucoPHAGE] 1,000 mg PO BID #60 Metoprolol Tartrate [Lopressor] 6.25 mg PO Q12 #60 tab - Follow Up Plan Condition: STABLE Disposition: HOME/ ROUTINE Additional Instructions: FOLLOW UP WITH DR. BRAND IN ONE WEEK RESUME DIET RESUME ACTIVITY TOLERATED RESUME MEDS ORDERED: FINISH LEVAQUIN 5 MORE DAYS IF CONDITION RETURNS OR WORSENS, RETURN TO EMERGENCY ROOM Referrals: Jarocho Brand MD [Staff Provider] -
== END 2017-04-05 12:47 | disposition home or self-care (01) | DRG 76 ==
LOC: H.ER 10:22 → H.ERHOLD 18:06 → H.MEDSURG1 23:16
PROC: 0BBC8ZX Excision of Right Upper Lung Lobe, Via Natural or Artificial Opening Endoscopic, Diagnostic (ICD-10-PCS; principal; 2017-04-01 11:00)
DX: J18.9 Pneumonia, unspecified organism (principal); R64 Cachexia; E87.1 Hypo-osmolality and hyponatremia; E87.5 Hyperkalemia; J98.4 Other disorders of lung; B19.10 Unspecified viral hepatitis B without hepatic coma; D63.8 Anemia in other chronic diseases classified elsewhere; E11.9 Type 2 diabetes mellitus without complications; R06.6 Hiccough; I10 Essential (primary) hypertension; Z68.1 Body mass index [BMI] 19.9 or less, adult; Y95 Nosocomial condition; R76.11 Nonspecific reaction to tuberculin skin test without active tuberculosis; Z79.4 Long term (current) use of insulin; Z79.84 Long term (current) use of oral hypoglycemic drugs; Z87.891 Personal history of nicotine dependence; Z87.01 Personal history of pneumonia (recurrent); Z87.11 Personal history of peptic ulcer disease

== ENCOUNTER 2017-04-22 07:52 | Day surgery (SDC) | payer OTHER ==
[2017-04-22] MEDS ORDERED: Lactated Ringer's 500 ML IV ONE (08:07)
[2017-04-22] MEDS ORDERED: Propofol 10 mg/ml Inj (20 ML) ONE (08:26)
[2017-04-22] MEDS ORDERED: Midazolam 2 MG/2 ML VIAL ONE (08:26)
[2017-04-22 08:33] VITALS: O2SAT 100
[2017-04-22 10:01] VITALS: TEMP 96
[2017-04-22 10:18] VITALS: BP 112/71; PULSE 78; RESP 19
== END 2017-04-22 10:50 | disposition home or self-care (01) ==
LOC: H.ENDO 07:52
PROVIDERS: ATTEND Internal Medicine Gastroenterology
DX: K21.0 Gastro-esophageal reflux disease with esophagitis (principal); K29.50 Unspecified chronic gastritis without bleeding; K63.4 Enteroptosis

== ENCOUNTER 2018-06-14 13:42 | Emergency (ER) | payer OTHER, SELFPAY ==
[2018-06-14 13:43] VITALS: BMI 17.5
[2018-06-14 13:52] VITALS: BP 121/69; PULSE 77; RESP 16; TEMP 98.2; O2SAT 98
[2018-06-14] MEDS ORDERED: Tdap Vaccine 0.5 ml Vial (10-64 yrs) IM ONE ×2 (14:07→14:29)
--- NOTE | 2018-06-14 14:11 | ED PDOC ---
Upper Extremity Pain/Injury Time Seen by Provider: 06/14/18 13:53 Chief Complaint (Nursing): Abnormal Skin Integrity Chief Complaint (Provider): left thumb injury History Per: Patient Onset/Duration Of Symptoms: Days (x2) Current Symptoms Are (Timing): Still Present Additional Complaint(s): David Small is a 62 year old right hand dominant male who presents to the emergency department with laceration to left thumb sustained 2 days ago when patient was opening up a can of sardines and accidentally cut his thumb. Patient did not see medical attention at time of injury. He is concerned about possible infection due to history of diabetes. Patient is not sure of last tetanus. PMD: [facility] Past Medical History Reviewed: Historical Data, Nursing Documentation, Vital Signs Vital Signs: Last Vital Signs Temp 98.2 F 06/14/18 13:49 Pulse 77 06/14/18 13:49 Resp 16 06/14/18 13:49 BP 121/69 06/14/18 13:49 Pulse Ox 98 06/14/18 13:49 - Medical History PMH: Diabetes - Family History Family History: States: No Known Family Hx - Living Arrangements Living Arrangements: With Family - Social History Current smoker - smoking cessation education provided: No Alcohol: None Drugs: Denies - Immunization History Hx Tetanus Toxoid Vaccination: No (not sure of last booster) - Home Medications Home Medications: Ambulatory Orders Medication Instructions Recorded Insulin Detemir [Levemir] 20 unit SC HS #1 04/05/17 Levofloxacin [Levaquin] 500 mg PO DAILY #5 tablet 04/05/17 MetFORMIN [glucoPHAGE] 1,000 mg PO BID tab 04/05/17 MetFORMIN [glucoPHAGE] 1,000 mg PO BID #60 04/05/17 Metoprolol Tartrate [Lopressor] 6.25 mg PO Q12 #60 tab 04/05/17 Cephalexin [Keflex] 500 mg PO TID #21 capsule 06/14/18 - Allergies Allergies/Adverse Reactions: Allergies Allergy/AdvReac Type Severity Reaction Status Date / Time No Known Allergies Allergy Verified 06/14/18 13:49 Review of Systems ROS Statement: Except As Marked, All Systems Reviewed And Found Negative Constitutional: Negative for: Fever, Chills Skin: Positive for: Other (laceration to left thumb) Physical Exam - Reviewed Nursing Documentation Reviewed: Yes Vital Signs Reviewed: Yes - Physical Exam Appears: Positive for: Well, Non-toxic, No Acute Distress Skin: Positive for: Normal Color Eye Exam: Positive for: Normal appearance Respiratory: Negative for: Respiratory Distress Extremity: Positive for: Other (2 cm superficial laceration to finger pad of left thumb. No active drainage, N/V intact). Negative for: Deformity Neurologic/Psych: Positive for: Alert, Oriented - ECG O2 Sat by Pulse Oximetry: 98 (RA) Pulse Ox Interpretation: Normal Medical Decision Making Medical Decision Making: Time: 13:53 Initial Impression: Left thumb laceration Initial plan: --Motrin tab 600 mg PO --Adacel 0.5 ml IM No sutures indicated as wound is over 24 hrs old. Wound was cleansed with saline and bacitracin and bandage applied. Rx keflex given. Advised OTC NSAID's as needed for pain. Wound care instructions given. Scribe Attestation: Documented by Edouard Ulloa, acting as a scribe for Anum Casey PA-C Provider Scribe Attestation: All medical record entries made by the Scribe were at my direction and personally dictated by me. I have reviewed the chart and agree that the record accurately reflects my personal performance of the history, physical exam, medical decision making, and the department course for this patient. I have also personally directed, reviewed, and agree with the discharge instructions and disposition. Disposition - Clinical Impression Clinical Impression: Thumb laceration, Requires a booster tetanus - Patient ED Disposition Is Patient to be Admitted: No Counseled Patient/Family Regarding: Diagnosis, Need For Followup, Rx Given - Disposition Referrals: [facility] [Outside] Disposition: Routine/Home Disposition Time: 14:45 Condition: STABLE Additional Instructions: Keep wound clean and dry. Wash daily with soap and water. Take rx meds as directed. Follow up with primary care doctor. Prescriptions: Cephalexin [Keflex] 500 mg PO TID #21 capsule Instructions: Wound Care, Diphtheria and Tetanus Toxoids, and Acellular Pertussis Vaccine Forms: [employer] (Wallisian) Print Language: ENGLISH
== END 2018-06-14 14:53 | disposition home or self-care (01) ==
LOC: H.ER 13:42
DX: S61.012A Laceration without foreign body of left thumb without damage to nail, initial encounter (principal); E11.9 Type 2 diabetes mellitus without complications; Z23 Encounter for immunization; Z79.4 Long term (current) use of insulin